=== PATIENT | female | born 1965 | race American Indian/Alaskan Native ===

== ENCOUNTER 2017-05-25 11:31 | Inpatient (IN) | payer OTHER ==
[2017-05-25 12:15] LABS: Basophils % (Auto) 0.8 % (0.0-1.8); Eosinophils % (Auto) 7.1 % (0.0-4.3); Hematocrit 37.7 % (30.3-42.9); Hemoglobin 12.7 gm/dl (10.1-14.3); Mean Corpuscular HGB Conc 34 % (30-34); Mean Corpuscular Hemoglobin 31 pg (28-32); Mean Corpuscular Volume 92 fl (79-97); Platelet Count 320 K/mm3 (140-440); White Blood Count 8.1 K/mm3 (4.5-11.0)
--- NOTE | 2017-05-25 12:22 | XRay Report ---
AP CHEST: HISTORY: Neurological deficit, stroke AP view of the chest demonstrates a normal mediastinal and cardiac contour with clear lungs and normal bony and soft tissue structures. IMPRESSION: Unremarkable AP chest.
[2017-05-25 12:27] LABS: INR 0.88 (0.87-1.13)
[2017-05-25 12:28] LABS: Partial Thromboplastin Time 26.8 Sec. (24.2-36.6)
--- NOTE | 2017-05-25 12:31 | Cat Scan Report ---
CT HEAD WITHOUT CONTRAST: HISTORY: Left sided weakness for 2 days. TECHNIQUE: Sequential 2.5mm CT images. COMPARISON: none. FINDINGS: Cerebral Parenchyma: Within normal limits. Cerebellum: Within normal limits. Brainstem: Within normal limits. Ventricles: Normal. Sella: Normal. Extra-axial spaces: Normal. Basal Cisterns: Normal. Intracranial Hemorrhage: None. Midline Shift: None. Calvarium: Normal. Sinuses: Normal. Mastoid Air Cells: Normal. Visualized Orbits: Normal. IMPRESSION: Cranial CT scan within normal limits.
[2017-05-25 12:55] LABS: Anion Gap 23 mmol/L; BUN/Creatinine Ratio 17; Blood Urea Nitrogen 17 mg/dL (7-17); Calcium 9.7 mg/dL (8.4-10.2); Carbon Dioxide 21 mmol/L (22-30); Chloride 101.3 mmol/L (98-107); Glucose 111 mg/dL (65-100); Potassium 4.1 mmol/L (3.6-5.0); Sodium 141 mmol/L (137-145)
[2017-05-25] MEDS ORDERED: ASPIRIN PO ONE (13:17)
--- NOTE | 2017-05-25 13:23 | Emergency Department Report ---
HPI - General Chief Complaint: Weakness Time Seen by Provider: 05/25/17 13:08 - HPI HPI: Room 6 The patient is a 52-year-old female presenting with a chief complaint of left sided weakness. Patient states she days ago she noticed weakness in her left hand she began dropping things from it. The patient states same day she began nose and left lower extremity weakness requiring her to track her left leg when walking. The patient states in the ED she developed left facial numbness. Patient does complain of a slight headache and back pain. Patient states she developed right-sided chest pain this morning that is sharp and aching in nature. The patient gives her pain score 10/10 Location: [See above] Duration: Constant 2 days Quality: Weakness Severity: 10/10 Modifying factors: [see above] Context: [see above] Mode of transportation: [not driving] ED Past Medical Hx - Past Medical History Previous Medical History?: Yes Hx Hypertension: Yes Hx CVA: Yes (tia, CVA 2006 no residual deficits) Hx Psychiatric Treatment: Yes (panic disorder) Additional medical history: tia 2011, uterus leiomyoma, arthritis of knee, hydrosalpinx, low back pain, h/o HPV infection movement disorder - Surgical History Additional Surgical History: tubal ligation - Family History Family history: no significant - Social History Smoking Status: Former Smoker (none for over 20 years) Substance Use Type: None (denies illicit drug use) - Medications Home Medications: Home Medications Medication Instructions Recorded Confirmed Last Taken Type Hydrochlorothiazide [Hctz] 25 mg PO QDAY 04/24/13 04/24/13 04/24/13 History Losartan [Cozaar] 50 mg PO QDAY 04/24/13 04/24/13 04/24/13 History Norethindrone Acetate [Aygestin] 5 mg PO DAILY 04/24/13 04/24/13 04/24/13 History amLODIPine [Norvasc] 5 mg PO DAILY 04/24/13 04/24/13 04/24/13 History ED Review of Systems ROS: Stated complaint: L SIDE WEAK, C/P Other details as noted in HPI ENT: denies: ear pain Cardiovascular: chest pain Gastrointestinal: denies: abdominal pain Genitourinary: denies: dysuria Musculoskeletal: back pain Neurological: headache, weakness Physical Exam - Physical Exam Vital Signs: Vital Signs 05/25/17 05/25/1705/25/17 11:41 12:12 12:15 Temperature 98.6 F 99.0 F Pulse Rate 116 H 102 H Respiratory 18 30 H 30 H Rate Blood Pressure 136/86 Blood Pressure 131/82 [Right] O2 Sat by Pulse 99 100 100 Oximetry 05/25/17 05/25/17 05/25/17 12:28 12:31 12:45 Temperature Pulse Rate 94 H 93 H 93 H Respiratory 45 H 33 H 31 H Rate Blood Pressure 131/82 131/82 Blood Pressure [Right] O2 Sat by Pulse 100 100 98 Oximetry 05/25/17 13:00 Temperature 99.0 F Pulse Rate 83 Respiratory 20 Rate Blood Pressure Blood Pressure 135/84 [Right] O2 Sat by Pulse 100 Oximetry Physical Exam: GENERAL: The patient is well-developed well-nourished female lying on stretcher not appearing to be in acute distress. [] HEENT: Normocephalic. Atraumatic. Extraocular motions are intact. Patient has moist mucous membranes. NECK: Supple. Trachea midline CHEST/LUNGS: Clear to auscultation. There is no respiratory distress noted. HEART/CARDIOVASCULAR: Regular. There is no tachycardia. There is no gallop rub or murmur. ABDOMEN: Abdomen is soft, nontender. Patient has normal bowel sounds. There is no abdominal distention. SKIN: There is no rash. There is no diaphoresis. NEURO: The patient is awake, alert, and oriented. The patient is cooperative. Cranial nerves II through XII grossly intact. Patient is only able to raise her left upper extremity approximately 6 inches from off the stretcher. The patient has normal speech. Patient is unable to flex left lower extremity at the hip and knee MUSCULOSKELETAL: There is no evidence of acute injury. ED Course Vital Signs 05/25/17 05/25/17 05/25/17 11:41 12:12 12:15 Temperature 98.6 F 99.0 F Pulse Rate 116 H 102 H Respiratory 18 30 H 30 H Rate Blood Pressure 136/86 Blood Pressure 131/82 [Right] O2 Sat by Pulse 99 100 100 Oximetry 05/25/17 05/25/17 05/25/17 12:28 12:31 12:45 Temperature Pulse Rate 94 H 93 H 93 H Respiratory 45 H 33 H 31 H Rate Blood Pressure 131/82 131/82 Blood Pressure [Right] O2 Sat by Pulse 100 100 98 Oximetry 05/25/17 13:00 Temperature 99.0 F Pulse Rate 83 Respiratory 20 Rate Blood Pressure Blood Pressure 135/84 [Right] O2 Sat by Pulse 100 Oximetry - Consultations Consultation #1: 05/25/17 14:04 [facility] called 05/25/17 14:[address] Jain-he states there are no beds available it is okay to admit the patient at [facility] ED Medical Decision Making - Lab Data Result diagrams: 05/25/17 11:52 05/25/17 11:52 Laboratory Tests 05/25/17 05/25/17 05/25/17 11:40 11:52 11:52 WBC 8.1 RBC 4.10 Hgb 12.7 Hct 37.7 MCV 92 MCH 31 MCHC 34 RDW 14.0 Plt Count 320 Lymph % (Auto) 36.9 H [place] % (Auto) 7.4 H Eos % (Auto) 7.1 H Baso % (Auto) 0.8 Lymph # 3.0 [place] # 0.6 Eos # 0.6 H Baso # 0.1 Seg Neutrophils % 47.8 Seg Neutrophils # 3.9 PT 12.4 INR 0.88 APTT 26.8 Thrombin Time Sodium Potassium Chloride Carbon Dioxide Anion Gap BUN Creatinine Estimated GFR BUN/Creatinine Ratio Glucose POC Glucose 106 H Calcium Troponin T 05/25/17 05/25/17 11:52 11:52 WBC RBC Hgb Hct MCV MCH MCHC RDW Plt Count Lymph % (Auto) [place] % (Auto) Eos % (Auto) Baso % (Auto) Lymph # [place] # Eos # Baso # Seg Neutrophils % Seg Neutrophils # PT INR APTT Thrombin Time 15.4 Sodium 141 Potassium 4.1 Chloride 101.3 Carbon Dioxide 21 L Anion Gap 23 BUN 17 Creatinine 1.0 Estimated GFR > 60 BUN/Creatinine Ratio 17 Glucose 111 H POC Glucose Calcium 9.7 Troponin T < 0.010 - EKG Data -: EKG Interpreted by Me EKG shows normal: sinus rhythm Rate: normal - EKG Data When compared to previous EKG there are: previous EKG unavailable Interpretation: other (no ischemic changes seen) - Radiology Data Radiology results: report reviewed (CT head), image reviewed (CT head, chest x- ray) interpreted by me: Chest x-ray-no focal infiltrates, no pneumothorax CT HEAD WITHOUT CONTRAST: HISTORY: Left sided weakness for 2 days. TECHNIQUE: Sequential 2.5mm CT images. COMPARISON: none. FINDINGS: Cerebral Parenchyma: Within normal limits. Cerebellum: Within normal limits. Brainstem: Within normal limits. Ventricles: Normal. Sella: Normal. Extra-axial spaces: Normal. Basal Cisterns: Normal. Intracranial Hemorrhage: None. Midline Shift: None. Calvarium: Normal. Sinuses: Normal. Mastoid Air Cells: Normal. Visualized Orbits: Normal. IMPRESSION: Cranial CT scan within normal limits. Transcribed By: TTR Dictated By: JUAN JOSÉ NERI JR, MD Electronically Authenticated By: JUAN JOSÉ NERI JR, MD Signed Date/Time: 05/25/171226 DD/ 26 TD/TT: 05/25/171226 - Differential Diagnosis CVA, complex migraine, ACS, pericarditis, GERD Critical care attestation.: If time is entered above; I have spent that time in minutes in the direct care of this critically ill patient, excluding procedure time. ED Disposition Clinical Impression: CVA (cerebral vascular accident) Disposition: -09 OP ADMIT IP TO THIS HOSP Is pt being admited?: Yes Does the pt Need Aspirin: Yes Condition: Fair Referrals: PRIMARY CARE, [Primary Care Provider] - 3-5 Days Time of Disposition: 14:09 (hospitalist paged Dr Escamilla)
[2017-05-25] MEDS ORDERED: BENADRYL ONE (17:02)
[2017-05-25] MEDS ORDERED: DILAUDID ONE (17:03)
[2017-05-25] MEDS: DILAUDID IV PRN ×2 (17:07→21:56)
[2017-05-25] MEDS: BENADRYL IV PRN (17:08)
--- NOTE | 2017-05-25 23:54 | History and Physical Report ---
History of Present Illness Date of examination: 05/25/17 Date of admission: 05/25/17 15:39 Chief complaint: CC L sided weakness. 3 days History of present illness: [place]: The patient is a 52-year-old female presenting with a chief complaint of left sided weakness. Patient states she noticed weakness in her left hand 3 days ago and she began dropping things from it. The patient states same day had left lower extremity weakness requiring her to lift her left leg when walking. The patient states in the ED she developed left facial numbness. Patient does complain of a slight headache and back pain. Patient states she developed right -sided chest pain this morning that is sharp and aching in nature. The patient gives her pain score 10/10.Patient apparently went to [place] ER 2 days ago and was evaluated and discharged. Past Medical History Previous Medical History?: Yes Hx Hypertension: Yes Hx CVA: Yes (tia, CVA 2006 no residual deficits) Hx Psychiatric Treatment: Yes (panic disorder) Additional medical history: tia 2011, uterus leiomyoma, arthritis of knee, hydrosalpinx, low back pain, h/o HPV infection movement disorder - Surgical History Additional Surgical History: tubal ligation - Family History Family history: no significant - Social History Smoking Status: Former Smoker (none for over 20 years) Substance Use Type: None (denies illicit drug use) - Medications Home Medications: Home Medications Medication Instructions Recorded Confirmed Last Taken Type Hydrochlorothiazide [Hctz] 25 mg PO QDAY 04/24/13 04/24/13 04/24/13 History Losartan [Cozaar] 50 mg PO QDAY 04/24/13 04/24/13 04/24/13 History Norethindrone Acetate [Aygestin] 5 mg PO DAILY 04/24/13 04/24/13 04/24/13 History amLODIPine [Norvasc] 5 mg PO DAILY 04/24/13 04/24/13 04/24/13 History Review of Systems ROS: Stated complaint: L SIDE WEAK, C/P Other details as noted in HPI ENT: denies: ear pain Cardiovascular: chest pain Gastrointestinal: denies: abdominal pain Genitourinary: denies: dysuria Musculoskeletal: back pain Neurological: headache, weakness Medications and Allergies Allergies Allergy/AdvReac Type Severity Reaction Status Date / Time acetaminophen [From Vicodin] Allergy Itching Verified 04/24/13 14:51 cyclobenzaprine Allergy Itching Verified 05/25/17 11:41 [From Flexeril] gabapentin Allergy Itching Verified 05/25/17 11:41 hydrocodone bitartrate Allergy Itching Verified 04/24/13 14:51 [From Vicodin] Opioids - Morphine Analogues Allergy Itching Verified 05/25/17 11:41 oxycodone Allergy Itching Verified 05/25/17 11:41 tramadol Allergy Itching Verified 05/25/17 11:41 perocet Allergy Itching Uncoded 05/25/17 11:41 Home Medications Medication Instructions Recorded Confirmed Last Taken Type Hydrochlorothiazide [Hctz] 25 mg PO QDAY 04/24/13 05/25/17 05/25/17 08:00 History Active Meds: Active Medications Diphenhydramine HCl (Benadryl) 25 mg IV Q6H PRN PRN Reason: Itching Last Admin: 05/25/17 17:08 Dose: 25 mg Hydromorphone HCl (Dilaudid) 0.5 mg IV Q3H PRN PRN Reason: Pain , Severe (7-10) Last Admin: 05/25/17 21:56 Dose: 0.5 mg Exam - Constitutional Vitals: Temp Pulse Resp BP Pulse Ox 98.9 F 106 H 18 136/78 99 05/25/17 21:26 05/25/17 21:26 05/25/17 21:26 05/25/17 21:26 05/25/17 21:26 General appearance: Present: no acute distress, well-nourished - EENT Eyes: Present: PERRL ENT: hearing intact, clear oral mucosa - Neck Neck: Present: supple, normal ROM - Respiratory Respiratory effort: normal Respiratory: bilateral: CTA - Cardiovascular Heart rate: 80 Rhythm: regular Heart Sounds: Present: S1 & S2. Absent: rub, click - Extremities Extremities: pulses symmetrical, No edema Peripheral Pulses: within normal limits - Abdominal General gastrointestinal: Present: soft, non-tender, non-distended, normal bowel sounds Female genitourinary: Present: normal - Integumentary Integumentary: Present: clear, warm, dry - Musculoskeletal Musculoskeletal: gait normal, strength equal bilaterally - Psychiatric Psychiatric: appropriate mood/affect, intact judgment & insight - Neurologic Neurologic: CNII-XII intact, focal deficits (LUE/LLE 2/5 weakness.Keeps it stiff.Unable to lift and leave the upper extremitiy.Keeps it stiff at shoulder.) Results - Labs CBC & Chem 7: 05/27/17 05:08 05/27/17 05:08 Labs: Laboratory Last Values WBC 8.1 K/mm3 (4.5-11.0) 05/25/17 11:52 RBC 4.10 M/mm3 (3.65-5.03) 05/25/17 11:52 Hgb 12.7 gm/dl (10.1-14.3) 05/25/17 11:52 Hct 37.7 % (30.3-42.9) 05/25/17 11:52 MCV 92 fl (79-97) 05/25/17 11:52 MCH 31 pg (28-32) 05/25/17 11:52 MCHC 34 % (30-34) 05/25/17 11:52 RDW 14.0 % (13.2-15.2) 05/25/17 11:52 Plt Count 320 K/mm3 (140-440) 05/25/17 11:52 Lymph % (Auto) 36.9 % (13.4-35.0) H 05/25/17 11:52 [place] % (Auto) 7.4 % (0.0-7.3) H 05/25/17 11:52 Eos % (Auto) 7.1 % (0.0-4.3) H 05/25/17 11:52 Baso % (Auto) 0.8 % (0.0-1.8) 05/25/17 11:52 Lymph # 3.0 K/mm3 (1.2-5.4) 05/25/17 11:52 [place] # 0.6 K/mm3 (0.0-0.8) 05/25/17 11:52 Eos # 0.6 K/mm3 (0.0-0.4) H 05/25/17 11:52 Baso # 0.1 K/mm3 (0.0-0.1) 05/25/17 11:52 Seg Neutrophils % 47.8 % (40.0-70.0) 05/25/17 11:52 Seg Neutrophils # 3.9 K/mm3 (1.8-7.7) 05/25/17 11:52 PT 12.4 Sec. (12.2-14.9) 05/25/17 11:52 INR 0.88 (0.87-1.13) 05/25/17 11:52 APTT 26.8 Sec. (24.2-36.6) 05/25/17 11:52 Thrombin Time 15.4 Sec. (15.1-19.6) 05/25/17 11:52 Sodium 141 mmol/L (137-145) 05/25/17 11:52 Potassium 4.1 mmol/L (3.6-5.0) 05/25/17 11:52 Chloride 101.3 mmol/L (98-107) 05/25/17 11:52 Carbon Dioxide 21 mmol/L (22-30) L 05/25/17 11:52 Anion Gap 23 mmol/L 05/25/17 11:52 BUN 17 mg/dL (7-17) 05/25/17 11:52 Creatinine 1.0 mg/dL (0.7-1.2) 05/25/17 11:52 Estimated GFR > 60 ml/min 05/25/17 11:52 BUN/Creatinine Ratio 17 % 05/25/17 11:52 Glucose 111 mg/dL (65-100) H 05/25/17 11:52 POC Glucose 106 (70-105) H 05/25/17 11:40 Calcium 9.7 mg/dL (8.4-10.2) 05/25/17 11:52 Troponin T < 0.010 ng/mL (0.00-0.029) 05/25/17 11:52 Short CBC 05/27/17 Range/Units 05:08 WBC 11.1 H (4.5-11.0) K/mm3 Hgb 12.1 (10.1-14.3) gm/dl Hct 35.0 (30.3-42.9) % Plt Count 327 (140-440) K/mm3 BMP 05/27/17 05:08 Sodium 142 Potassium 3.6 Chloride 101.3 Carbon Dioxide 23 BUN 18 H Creatinine 0.9 Glucose 132 H Calcium 9.4 Liver Function 05/27/17 Range/Units 05:08 Total Bilirubin 0.30 (0.1-1.2) mg/dL AST 17 (5-40) units/L ALT 19 (7-56) units/L Alkaline Phosphatase 87 (35-129) units/L Albumin 4.4 (3.9-5) g/dL - Imaging and Cardiology EKG: report reviewed (NSR) Chest x-ray: report reviewed (NAF) CT Scan - head: report reviewed (NAF) MRI - head: report reviewed (Negative) Assessment and Plan Advance Directives: Yes (Full code) VTE prophylaxis?: Chemical Plan of care discussed with patient/family: Yes - Patient Problems (1) Acute cerebrovascular accident Current Visit: Yes Status: Acute Plan to address problem: MRI negative Possible functional etiology Conversion reaction?? Will get MH involved (2) HTN (hypertension) Current Visit: Yes Status: Chronic Qualifiers: Hypertension type: essential hypertension Qualified Code(s): I10 - Essential (primary) hypertension Plan to address problem: Cont antihypertensives (3) HLD (hyperlipidemia) Current Visit: Yes Status: Chronic Qualifiers: Hyperlipidemia type: mixed hyperlipidemia Qualified Code(s): E78.2 - Mixed hyperlipidemia Plan to address problem: ont Statins (4) DVT prophylaxis Current Visit: Yes Status: Acute Plan to address problem: on Lovenox
[2017-05-26] MEDS: BENADRYL IV PRN ×5 (01:32→22:16)
[2017-05-26] MEDS ORDERED: DULCOLAX PR PRN (02:15)
[2017-05-26] MEDS ORDERED: TYLENOL PO PRN (02:15)
[2017-05-26] MEDS ORDERED: ZOFRAN IV PRN (02:15)
[2017-05-26] MEDS ORDERED: MILK OF MAGNESIA PO PRN (02:15)
[2017-05-26] MEDS ORDERED: PERCOCET 5/325 PO PRN (02:15)
[2017-05-26] MEDS ORDERED: SODIUM CHLORIDE FLUSH SYRINGE 10 ML IV PRN (02:21)
[2017-05-26] MEDS: DILAUDID IV PRN ×4 (04:16→22:15)
--- NOTE | 2017-05-26 11:09 | Magnetic Resonance Report ---
MRA HEAD WITHOUT CONTRAST HISTORY: Stroke. [id number] imaging with MIP reformations of the deering of M[place] is submitted. The arteries appear widely patent and free of hemodynamically significant stenosis, aneurysm or dissection. IMPRESSION: Unremarkable MRA head.
--- NOTE | 2017-05-26 11:09 | Magnetic Resonance Report ---
MRI OF THE BRAIN WITHOUT CONTRAST: HISTORY: Stroke PROCEDURE: Multiplanar, multisequence MR imaging of the brain without IV contrast was performed. FINDINGS: The brain parenchyma signal intensity and its cutler white interface are within normal limits on all sequences. No evidence for acute ischemia, hemorrhage or mass. No chronic infarct or extra-axial fluid collection. The midline structures are central. The basal cisterns are patent. Normal ventricular size. The orbital cavities and sella turcica demonstrate no abnormality. The visualized paranasal sinuses and mastoid air cells are well aerated. IMPRESSION: Unremarkable non-enhanced MRI of the brain.
--- NOTE | 2017-05-26 12:51 | Consultation ---
History of Present Illness Consult date: 05/26/17 History of present illness: PERSONALLY DID REVIEW THE MRA AND MRI AND THESE ARE BOTH NORMAL / UNREMARKABLE ? TIA? Medications and Allergies Allergies Allergy/AdvReac Type Severity Reaction Status Date / Time acetaminophen [From Vicodin] Allergy Itching Verified 04/24/13 14:51 cyclobenzaprine Allergy Itching Verified 05/25/17 11:41 [From Flexeril] gabapentin Allergy Itching Verified 05/25/17 11:41 hydrocodone bitartrate Allergy Itching Verified 04/24/13 14:51 [From Vicodin] Opioids - Morphine Analogues Allergy Itching Verified 05/25/17 11:41 oxycodone Allergy Itching Verified 05/25/17 11:41 tramadol Allergy Itching Verified 05/25/17 11:41 perocet Allergy Itching Uncoded 05/25/17 11:41 Home Medications Medication Instructions Recorded Confirmed Last Taken Type Hydrochlorothiazide [Hctz] 25 mg PO QDAY 04/24/13 05/25/17 05/25/17 08:00 History Active Meds: Active Medications Acetaminophen (Tylenol) 650 mg PO Q4H PRN PRN Reason: Pain MILD(1-3)/Fever >100.5/WEEMS Bisacodyl (Dulcolax) 10 mg DC QDAY PRN PRN Reason: Constipation unrelieved by MOM Diphenhydramine HCl (Benadryl) 25 mg IV Q6H PRN PRN Reason: Itching Last Admin: 05/26/17 08:56 Dose: 25 mg Hydromorphone HCl (Dilaudid) 0.5 mg IV Q3H PRN PRN Reason: Pain , Severe (7-10) Last Admin: 05/26/17 08:57 Dose: 0.5 mg Magnesium Hydroxide (Milk Of Magnesia) 30 ml PO Q4H PRN PRN Reason: Constipation Ondansetron HCl (Zofran) 4 mg IV Q8H PRN PRN Reason: N/V unrelieved by Reglan Oxycodone/Acetaminophen (Percocet 5/325) 1 tab PO Q6H PRN PRN Reason: Pain, Moderate (4-6) Sodium Chloride (Sodium Chloride Flush Syringe 10 Ml) 10 ml IV PRN PRN PRN Reason: LINE FLUSH Physical Examination - Vital Signs Vital Signs: Vital Signs Temp Pulse Resp BP Pulse Ox 98.6 F 116 H 18 136/86 99 05/25/17 11:41 05/25/17 11:41 05/25/17 11:41 05/25/17 11:41 05/25/17 11:41 Results - Laboratory Findings CBC and BMP: 05/25/17 11:52 05/25/17 11:52 Abnormal Lab Findings: Abnormal Labs 05/25/17 05/25/17 05/25/17 11:40 11:52 11:52 Lymph % (Auto) 36.9 H [place] % (Auto) 7.4 H Eos % (Auto) 7.1 H Eos # 0.6 H Carbon Dioxide 21 L Glucose 111 H POC Glucose 106 H
[2017-05-26] MEDS ORDERED: MOTRIN PO PRN (17:11)
--- NOTE | 2017-05-26 18:59 | Consultation ---
HISTORY OF PRESENT ILLNESS: This is a 52-year-old black female that presents to [facility] with a history of left-sided weakness. Review of the ER note indicates that she has had weakness of the left side for several days. She presented to the hospital, has been on antihypertensive treatment. She states to me that she had a stroke in 2005. She was hospitalized at this hospital per her recollection and she was left with chronic musculoskeletal pain as a result of this. She sees the doctor as a cause of her treatment. She does not exactly remember what diagnosis was assessed for her condition whether this is fibromyalgia, rheumatoid arthritis or myofascial pain or even central pain syndrome due to the old stroke. What is curious is that since she has been admitted, she has had very little change in her neurological symptomatology. I have gone over her MRA and MRI, they both are unremarkable, yet on examination she has a symmetrical face. She has a profound rigidity of the left arm and left leg almost as if there is some type of fixed contracture and they are in extension rather than flexion. This is quite an uncharacteristic finding and she obviously being aware of her hemiparesis, does not have indifference, does not have the right parietal lobe syndrome, does not have any other symptoms very strongly suggestive of a central process such as a positive MRI and any parietal lobe findings. This whole presentation seems quite atypical in my view, especially given the intense degree of rigidity in the left arm and left leg, which is quite uncharacteristic for an ischemic stroke, yet I think because of the hemiparetic nature of it, it is unlikely to be spinal cord in origin as it is a hemiparetic-type phenomena and she does not have any other symptoms suggestive of a central cord syndrome. I plan to review MRA and MRI with the radiologist and make further comments at that point. JOB# [id number] CAMI/BRYON
--- NOTE | 2017-05-26 21:42 | Progress Note ---
Assessment and Plan - Patient Problems (1) Acute cerebrovascular accident Current Visit: Yes Status: Acute Plan to address problem: MRI negative Possible functional etiology Conversion reaction?? Will get MH involved (2) HLD (hyperlipidemia) Current Visit: Yes Status: Chronic Qualifiers: Hyperlipidemia type: mixed hyperlipidemia Qualified Code(s): E78.2 - Mixed hyperlipidemia Plan to address problem: ont Statins (3) HTN (hypertension) Current Visit: Yes Status: Chronic Qualifiers: Hypertension type: essential hypertension Qualified Code(s): I10 - Essential (primary) hypertension Plan to address problem: Cont antihypertensives (4) DVT prophylaxis Current Visit: Yes Status: Acute Plan to address problem: on Lovenox Subjective Date of service: 05/26/17 Principal diagnosis: L side weakness Interval history: Some improvement Keeps l side stiff. No Flaccidity Objective - Constitutional Vitals: Vital Signs - 12hr 05/26/17 05/26/17 05/26/17 10:00 13:15 20:44 Temperature 97.5 F L 98.8 F Pulse Rate 88 95 H 102 H Respiratory 20 20 20 Rate Blood Pressure 146/84 152/80 O2 Sat by Pulse 96 94 Oximetry General appearance: Present: no acute distress, well-nourished - EENT Eyes: PERRL, EOM intact ENT: hearing intact, clear oral mucosa Ears: bilateral: normal - Neck Neck: supple, normal ROM - Respiratory Respiratory effort: normal Respiratory: bilateral: CTA - Breasts Breasts: normal - Cardiovascular Heart rate: 70 Rhythm: regular Heart Sounds: Present: S1 & S2. Absent: gallop, rub Extremities: no ischemia, pulses intact, No edema, normal color, Full ROM - Gastrointestinal General gastrointestinal: Present: soft, non-tender, non-distended, normal bowel sounds - Genitourinary Female genitourinary: normal - Integumentary Integumentary: clear, warm, dry - Musculoskeletal Musculoskeletal: 1, strength equal bilaterally - Neurologic Neurologic: CNII-XII intact, focal deficits (LUE unable to lift and drop the extremity.Keeps it stiff at L shoulder) - Psychiatric Psychiatric: memory intact, appropriate mood/affect, intact judgment & insight - Labs CBC & Chem 7: 05/27/17 05:08 05/27/17 05:08
[2017-05-27] MEDS: BENADRYL IV PRN ×2 (03:07→13:18)
[2017-05-27] MEDS: DILAUDID IV PRN ×2 (03:07→13:17)
[2017-05-27 06:07] LABS: Basophils % (Auto) 0.6 % (0.0-1.8); Eosinophils % (Auto) 6.8 % (0.0-4.3); Hemoglobin 12.1 gm/dl (10.1-14.3); Mean Corpuscular HGB Conc 35 % (30-34); Mean Corpuscular Hemoglobin 31 pg (28-32); Mean Corpuscular Volume 90 fl (79-97); Platelet Count 327 K/mm3 (140-440); Red Blood Count 3.87 M/mm3 (3.65-5.03); Red Cell Distribution Width 14.2 % (13.2-15.2); White Blood Count 11.1 K/mm3 (4.5-11.0)
[2017-05-27 06:28] LABS: Alanine Aminotransferase 19 units/L (7-56); Albumin 4.4 g/dL (3.9-5); Albumin/Globulin Ratio 1.6 %; Alkaline Phosphatase 87 units/L (35-129); Anion Gap 21 mmol/L; BUN/Creatinine Ratio 20; Blood Urea Nitrogen 18 mg/dL (7-17); Calcium 9.4 mg/dL (8.4-10.2); Carbon Dioxide 23 mmol/L (22-30); Chloride 101.3 mmol/L (98-107); Cholesterol 144 mg/dL (50-199); Glucose 132 mg/dL (65-100); HDL Cholesterol 40 mg/dL (40-59); LDL Cholesterol,Direct 69 mg/dL (50-130); Potassium 3.6 mmol/L (3.6-5.0); Sodium 142 mmol/L (137-145); Total Protein 7.2 g/dL (6.3-8.2); Triglycerides 179 mg/dL (2-149)
[2017-05-27 07:30] VITALS: BP 151/84
[2017-05-27] MEDS ORDERED: HCTZ PO SCH (10:00)
[2017-05-27] MEDS ORDERED: COZAAR PO SCH (10:00)
--- NOTE | 2017-05-27 12:39 | Discharge Summary ---
Providers - Providers Date of Admission: 05/25/17 15:39 Date of discharge: 05/27/17 Attending physician: GIRMA ORR 05/26/17 02:15 Consult to Physician [CONS] Routine Consulting Provider: FRANCIS GARNER Reason For Exam: CVA Place consult to:: neuro Notified:: frantz service Phone number called:: [phone] Was contact made?: Yes If yes, spoke with:: [email or web address] Time called:: 08:50 05/26/17 02:21 Occupational Therapy Evaluate and Treat [CONS] Routine Comment: Reason For Exam: Neuro deficits Physical Therapy Evaluation and Treat [CONS] Routine Comment: Reason For Exam: Neuro deficits 05/27/17 07:09 Consult to Mental Health [CONS] Routine Reason For Exam: CVA versus conversion disorer Place consult to:: n Notified:: Phone number called:: [phone] Was contact made?: Yes If yes, spoke with:: ramírez Time called:: 08:56 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 CVA suspected on admission and stroke workup initiated. Physical exam was not concordant with her stated symptoms and imaging tests including CT head, brain MRI, MRA excluded any acute or prior stroke. Concern for psychiatric/conversion disorder. Discussed with [facility] and patient is discharged with PCP and psychiatry follow-up. Discharge diagnoses: CVA excluded Psychiatric/? Conversion disorder HTN HPL Obesity Disposition: DC- TO HOME OR SELFCARE Time spent for discharge: 35 min Core Measure Documentation - Palliative Care Palliative Care/ Comfort Measures: Not Applicable - Core Measures Any of the following diagnoses?: none Exam - Physical Exam Narrative exam: Seen and examined: - Constitutional Vitals: Temp Pulse Resp BP Pulse Ox 98.7 F 86 16 151/84 98 05/27/17 07:25 05/27/17 07:25 05/27/17 07:25 05/27/17 07:25 05/27/17 07:25 General appearance: Present: no acute distress, obese - EENT Eyes: Present: PERRL, EOM intact - Neck Neck: Present: supple, normal ROM. Absent: masses or JVD - Respiratory Respiratory effort: normal Respiratory: bilateral: CTA, negative: rhonchi, wheezing - Cardiovascular Rhythm: regular Heart Sounds: Present: S1 & S2. Absent: systolic murmur - Extremities Extremities: no ischemia - Abdominal General gastrointestinal: Present: soft, non-tender, non-distended, normal bowel sounds - Neurologic Neurologic: other (refusing to move left arm and leg) Plan Activity: advance as tolerated, fall precautions Diet: low cholesterol, low salt Additional Instructions: f/u with your PCP and psychiatrist at [facility] (discussed with Dr. Jain and patient will be called with appointment dates) Follow up with: PRIMARY CARE, [Primary Care Provider] - 3-5 Days Prescriptions: Pravastatin [Pravachol] 40 mg PO QHS #30 tablet Losartan [Cozaar] 50 mg PO QDAY #30 tablet
[2017-05-27] MEDS ORDERED: PRAVACHOL PO SCH (22:00)
== END 2017-05-27 16:33 | disposition home or self-care (01) | DRG 880 ==
LOC: ED 11:31 → 4A 15:39 → 3A 05-26 20:35
PROVIDERS: ADMIT Internal Medicine; ATTEND Internal Medicine
DX: F44.4 Conversion disorder with motor symptom or deficit (principal); I10 Essential (primary) hypertension; Z98.51 Tubal ligation status; Z87.891 Personal history of nicotine dependence; E78.5 Hyperlipidemia, unspecified; Z88.8 Allergy status to other drugs, medicaments and biological substances
CPT/HCPCS: 36415; 70450; 70544; 70551; 71010; 80048; 80053; 80061; 82962; 84484; 85025; 85610; 85670; 85730; 93005; 93010; 93306; 94760; 96374; A9270-GY; J1170; J1200

== ENCOUNTER 2017-09-01 08:22 | Emergency (ER) | payer OTHER ==
[2017-09-01 09:30] LABS: Basophils # (Auto) 0.1 K/mm3 (0.0-0.1); Basophils % (Auto) 0.7 % (0.0-1.8); Eosinophils # (Auto) 0.4 K/mm3 (0.0-0.4); Eosinophils % (Auto) 5.1 % (0.0-4.3); Hemoglobin 11.6 gm/dl (10.1-14.3); Lymphocytes # (Auto) 2.8 K/mm3 (1.2-5.4); Lymphocytes % (Auto) 40.1 % (13.4-35.0); Mean Corpuscular HGB Conc 34 % (30-34); Mean Corpuscular Hemoglobin 31 pg (28-32); Mean Corpuscular Volume 89 fl (79-97); Monocytes # (Auto) 0.6 K/mm3 (0.0-0.8); Monocytes % (Auto) 8.2 % (0.0-7.3); Platelet Count 318 K/mm3 (140-440); Red Cell Distribution Width 13.1 % (13.2-15.2)
[2017-09-01 09:43] LABS: BUN/Creatinine Ratio 11; Blood Urea Nitrogen 11 mg/dL (7-17); Calcium 8.8 mg/dL (8.4-10.2); Hemolysis Index 49
--- NOTE | 2017-09-01 09:44 | Emergency Department Report ---
ED General Adult HPI - General Chief complaint: Dyspnea/Respdistress Stated complaint: BRET Time Seen by Provider: 09/01/17 09:43 Source: patient Mode of arrival: Stretcher Limitations: No Limitations - History of Present Illness Initial comments: Patient gives a somewhat unreliable history of a CT angiogram performed last Saturday being abnormal and "probable pulmonary embolism". She also mentions something that sounds like a hilar abnormality. This is a patient I previously seen before. She has been admitted at this facility for a TIA workup. She had a negative stroke workup and normal echocardiogram. Over the last week she has been to [facility] and their acute care clinic for uncontrolled hypertension and worked up of a tachycardia which involves the CT angiogram. I spoke into the [facility] physician who stated that her CT angiogram was essentially normal that is no PE and normal mediastinum slight atelectasis but otherwise no pulmonary normality. However, in 2015 she had an abnormal stress test (Lexiscan)). Patient states that she has had shortness of breath intermittently during the week. Today she had some fullness in her anterior chest which was associated with shortness of breath. She called the [facility] clinic and she was directed to the nearest hospital. At the point of my encounter the patient denies chest discomfort and shortness of breath. -: Gradual, week(s) Location: chest Radiation: non-radiation Severity scale (0 -10): 0 Quality: other (a "fullness") Consistency: intermittent Improves with: none Worsens with: none Associated Symptoms: denies other symptoms (except dyspnea), shortness of breath - Related Data Home Medications Medication Instructions Recorded Confirmed Last Taken AtorvaSTATin [Lipitor] 40 mg PO QHS 09/01/17 09/01/17 Unknown DULoxetine [Cymbalta] 90 mg PO QDAY 09/01/17 09/01/17 Unknown Ferrous Sulfate [Iron] 325 mg PO QDAY 09/01/17 09/01/17 Unknown Hydroxyzine HCl 50 mg PO TID 09/01/17 09/01/17 Unknown Pantoprazole [Protonix] 40 mg PO BID 09/01/17 09/01/17 Unknown Potassium Chloride [K-Dur] 40 meq PO QDAY 09/01/17 09/01/17 Unknown Valsartan [Diovan] 320 mg PO QDAY 09/01/17 09/01/17 Unknown hydrALAZINE [Apresoline] 50 mg PO TID 09/01/17 09/01/17 Unknown tiZANidine [Zanaflex] 4 mg PO TID 09/01/17 09/01/17 Unknown Allergies Allergy/AdvReac Type Severity Reaction Status Date / Time acetaminophen [From Vicodin] Allergy Itching Verified 04/24/13 14:51 cyclobenzaprine Allergy Itching Verified 05/25/17 11:41 [From Flexeril] gabapentin Allergy Itching Verified 05/25/17 11:41 hydrocodone bitartrate Allergy Itching Verified 04/24/13 14:51 [From Vicodin] Opioids - Morphine Analogues Allergy Itching Verified 05/25/17 11:41 oxycodone Allergy Itching Verified 05/25/17 11:41 tramadol Allergy Itching Verified 05/25/17 11:41 perocet Allergy Itching Uncoded 05/25/17 11:41 ED Review of Systems ROS: Stated complaint: BRET Other details as noted in HPI Constitutional: denies: chills, fever Eyes: denies: eye pain, eye discharge, vision change ENT: denies: ear pain, throat pain Respiratory: shortness of breath. denies: cough, wheezing Cardiovascular: as per HPI, chest pain. denies: palpitations Endocrine: no symptoms reported Gastrointestinal: denies: abdominal pain, nausea, diarrhea Genitourinary: denies: urgency, dysuria, discharge Musculoskeletal: other (bilateral leg pain). denies: back pain, joint swelling , arthralgia Skin: denies: rash, lesions Neurological: denies: headache, weakness, paresthesias Psychiatric: denies: anxiety, depression Hematological/Lymphatic: denies: easy bleeding, easy bruising ED Past Medical Hx - Past Medical History Previous Medical History?: Yes Hx Hypertension: Yes Hx CVA: Yes (tia, CVA 2006 no residual deficits) Hx Heart Attack/AMI: Yes Hx Congestive Heart Failure: Yes Hx Diabetes: No Hx Psychiatric Treatment: Yes (panic disorder) Hx Asthma: No Hx COPD: No Hx Dementia: Yes Additional medical history: tia 2011, uterus leiomyoma, arthritis of knee, hydrosalpinx, low back pain, h/o HPV infection movement disorder - Surgical History Past Surgical History?: Yes Additional Surgical History: tubal ligation - Social History Smoking Status: Never Smoker Substance Use Type: None - Medications Home Medications: Home Medications Medication Instructions Recorded Confirmed Last Taken Type AtorvaSTATin [Lipitor] 40 mg PO QHS 09/01/17 09/01/17 Unknown History DULoxetine [Cymbalta] 90 mg PO QDAY 09/01/17 09/01/17 Unknown History Ferrous Sulfate [Iron] 325 mg PO QDAY 09/01/17 09/01/17 Unknown History Hydroxyzine HCl 50 mg PO TID 09/01/17 09/01/17 Unknown History Pantoprazole [Protonix] 40 mg PO BID 09/01/17 09/01/17 Unknown History Potassium Chloride [K-Dur] 40 meq PO QDAY 09/01/17 09/01/17 Unknown History Valsartan [Diovan] 320 mg PO QDAY 09/01/17 09/01/17 Unknown History hydrALAZINE [Apresoline] 50 mg PO TID 09/01/17 09/01/17 Unknown History tiZANidine [Zanaflex] 4 mg PO TID 09/01/17 09/01/17 Unknown History ED Physical Exam - General Limitations: No Limitations General appearance: alert, in no apparent distress - Head Head exam: Present: atraumatic, normocephalic - Eye Eye exam: Present: normal appearance - ENT ENT exam: Present: mucous membranes moist - Neck Neck exam: Present: normal inspection. Absent: tenderness, meningismus - Respiratory Respiratory exam: Present: normal lung sounds bilaterally. Absent: respiratory distress - Cardiovascular Cardiovascular Exam: Present: normal rhythm, bradycardia. Absent: systolic murmur, diastolic murmur, rubs, gallop - GI/Abdominal GI/Abdominal exam: Present: soft, normal bowel sounds. Absent: distended, tenderness, guarding, rebound, rigid - Extremities Exam Extremities exam: Present: normal capillary refill, calf tenderness (states someone on the right), other (bilateral pretibial edema). Absent: pedal edema, joint swelling - Back Exam Back exam: Present: normal inspection - Neurological Exam Neurological exam: Present: alert, oriented X3, CN II-XII intact. Absent: motor sensory deficit - Psychiatric Psychiatric exam: Present: normal affect, normal mood - Skin Skin exam: Present: warm, dry, intact, normal color. Absent: rash ED Course Vital Signs 09/01/17 09/01/17 09/01/17 08:29 08:30 08:36 Temperature 98.2 F Pulse Rate 65 57 L 52 L Respiratory 17 22 24 Rate Blood Pressure 117/70 Blood Pressure 117/70 [Right] O2 Sat by Pulse 96 97 Oximetry 09/01/17 09/01/17 09/01/17 08:46 09:00 09:30 Temperature Pulse Rate 48 L 46 L 55 L Respiratory 14 28 H Rate Blood Pressure 132/82 128/70 128/70 Blood Pressure [Right] O2 Sat by Pulse 99 100 Oximetry 09/01/17 09/01/17 09:45 09:59 Temperature Pulse Rate 51 L Respiratory 11 L 16 Rate Blood Pressure 126/78 Blood Pressure [Right] O2 Sat by Pulse 100 97 Oximetry - Reevaluation(s) Reevaluation #1: Patient has multiple risk factors for coronary artery disease. She has previously abnormal stress test. I spoke to the [facility] physician about disposition and the need for further workup. The patient will be admitted to [facility]. She is stable for transfer. 09/01/17 10:21 Reevaluation #2: I will order some additional labs to include a proBNP pattern functions and coagulation profile. 09/01/17 10:22 ED Medical Decision Making - Lab Data Result diagrams: 09/01/17 09:15 09/01/17 09:15 Laboratory Results - last 24 hr 09/01/17 09/01/17 09:15 09:15 WBC 7.0 RBC 3.80 Hgb 11.6 Hct 34.0 MCV 89 MCH 31 MCHC 34 RDW 13.1 L Plt Count 318 Lymph % (Auto) 40.1 H [place] % (Auto) 8.2 H Eos % (Auto) 5.1 H Baso % (Auto) 0.7 Lymph # 2.8 [place] # 0.6 Eos # 0.4 Baso # 0.1 Seg Neutrophils % 45.9 Seg Neutrophils # 3.2 Sodium 142 Potassium 3.5 L Chloride 104.2 Carbon Dioxide 26 Anion Gap 15 BUN 11 Creatinine 1.0 Estimated GFR > 60 BUN/Creatinine Ratio 11 Glucose 134 H Calcium 8.8 Troponin T < 0.010 - EKG Data -: EKG Interpreted by Nc EKG shows normal: sinus rhythm, axis, intervals, QRS complexes, ST-T waves Rate: bradycardia - EKG Data Interpretation: no acute changes - Radiology Data Radiology results: report reviewed (mild pulmonary venous congestion) Critical care attestation.: If time is entered above; I have spent that time in minutes in the direct care of this critically ill patient, excluding procedure time. ED Disposition Clinical Impression: Leg edema, Bradycardia Chest pain Qualifiers: Chest pain type: unspecified Qualified Code(s): R07.9 - Chest pain, unspecified HTN (hypertension) Qualifiers: Hypertension type: essential hypertension Qualified Code(s): I10 - Essential ( primary) hypertension Leg pain Qualifiers: Laterality: bilateral Qualified Code(s): M79.604 - Pain in right leg; M79.605 - Pain in left leg Dyspnea Qualifiers: Dyspnea type: shortness of breath Qualified Code(s): R06.02 - Shortness of breath; R06.00 - Dyspnea, unspecified; R06.01 - Orthopnea Disposition: DC/TX-70 ANOTHER TYPE HLTHCARE Is pt being admited?: No Does the pt Need Aspirin: No Condition: Stable Instructions: Chest Pain (ED), Hypertension (ED) Additional Instructions: Transferred to [facility] for further workup Referrals: PRIMARY CAREMD [Primary Care Provider] - 3-5 Days Time of Disposition: 10:26
--- NOTE | 2017-09-01 09:47 | XRay Report ---
ROUTINE CHEST, TWO VIEWS: HISTORY: Shortness of breath. Mild pulmonary venous congestion has developed since 05/25/17. Heart size is within normal limits. The lungs are clear. No evidence for CHF, pneumonia or pneumothorax. The bony structures are unremarkable. IMPRESSION: Mild pulmonary venous congestion which appears to be new since 05/25/17.
[2017-09-01] MEDS ORDERED: ASPIRIN PO ONE (10:28)
[2017-09-01 11:22] LABS: INR 0.86 (0.87-1.13); Partial Thromboplastin Time 27.5 Sec. (24.2-36.6)
[2017-09-01 11:43] VITALS: BP 134/77
[2017-09-01 11:50] LABS: Creatine Kinase MB 1.2 ng/mL (0.0-4.0)
[2017-09-01 11:51] LABS: Albumin 3.5 g/dL (3.9-5)
[2017-09-01 11:52] LABS: Bilirubin,Direct < 0.2 mg/dL (0-0.2)
[2017-09-01 12:03] LABS: Alanine Aminotransferase 51 units/L (7-56)
== END 2017-09-01 12:12 | disposition other institution (70) ==
LOC: ED 08:22
DX: R07.89 Other chest pain (principal); I11.0 Hypertensive heart disease with heart failure; I50.9 Heart failure, unspecified; R00.1 Bradycardia, unspecified; I25.2 Old myocardial infarction; Z86.73 Personal history of transient ischemic attack (TIA), and cerebral infarction without residual deficits; Z88.6 Allergy status to analgesic agent; Z88.8 Allergy status to other drugs, medicaments and biological substances
CPT/HCPCS: 36415; 71046; 80048; 80074; 82550; 82553; 83880; 84484; 85025; 85379; 85610; 85730; 93005; 93010; 99285

== ENCOUNTER 2018-01-12 13:56 | Emergency (ER) | payer OTHER ==
[2018-01-12] MEDS ORDERED: APRESOLINE IV ONE ×2 (16:10→16:40)
[2018-01-12] MEDS ORDERED: ATIVAN IV ONE (16:39)
[2018-01-12 16:41] LABS: Basophils % (Auto) 0.3 % (0.0-1.8); Eosinophils # (Auto) 0.2 K/mm3 (0.0-0.4); Eosinophils % (Auto) 2.4 % (0.0-4.3); Hematocrit 41.4 % (30.3-42.9); Hemoglobin 14.2 gm/dl (10.1-14.3); Lymphocytes # (Auto) 2.3 K/mm3 (1.2-5.4); Lymphocytes % (Auto) 31.6 % (13.4-35.0); Mean Corpuscular HGB Conc 34 % (30-34); Mean Corpuscular Hemoglobin 32 pg (28-32); Mean Corpuscular Volume 92 fl (79-97); Monocytes # (Auto) 0.5 K/mm3 (0.0-0.8); Monocytes % (Auto) 7.1 % (0.0-7.3); Platelet Count 339 K/mm3 (140-440); Red Cell Distribution Width 14.4 % (13.2-15.2)
--- NOTE | 2018-01-12 16:53 | XRay Report ---
FINAL REPORT EXAM: XR CHEST 1V AP HISTORY: chest pain TECHNIQUE: AP portable view of the chest PRIORS: None. FINDINGS: Lines, tubes, and devices: N/A Lungs and pleura: Trachea is normal in position. There is a vague density in the left lateral costophrenic angle. Lungs are otherwise clear of infiltrate, pleural effusion, vascular congestion, or pneumothorax. Cardiomediastinal silhouette: Cardiac and mediastinal silhouettes are unremarkable. Other: Bony structures are intact. IMPRESSION: Vague density in the left lateral costophrenic angle which may represent a confluence of shadows. When the patient is more stable, dedicated PA and lateral views of the chest are recommended.
[2018-01-12 16:58] LABS: BUN/Creatinine Ratio 10; Blood Urea Nitrogen 8 mg/dL (7-17); Calcium 9.8 mg/dL (8.4-10.2); Hemolysis Index 9
[2018-01-12] MEDS ORDERED: NORMODYNE IV ONE (18:02)
--- NOTE | 2018-01-12 18:11 | Emergency Department Report ---
HPI - General Chief Complaint: High BP Time Seen by Provider: 01/12/18 16:20 - HPI HPI: The patient is a 52-year-old female with a history of hypertension, who presents for evaluation of elevated blood pressure and intermittent shakes. The patient states that for the past 2 weeks she has experienced on and off mild in severity, self-resolving intermittent shaking of the upper extremities, improved at rest and exacerbated with movement. The patient denies fever, head injury, headache, neck pain, neck stiffness, chest pain, dyspnea, abdominal pain , vision or hearing changes, smell or taste changes, paresthesias, facial drooping, slurred speech, seizure-like activity, urine or bowel incontinence or retention, or other focal neurological deficit. ED Past Medical Hx - Past Medical History Hx Hypertension: Yes Hx CVA: Yes (tia, CVA 2006 no residual deficits) Hx Heart Attack/AMI: Yes Hx Congestive Heart Failure: Yes Hx Diabetes: No Hx Arthritis: Yes Hx Psychiatric Treatment: Yes (panic disorder) Hx Asthma: No Hx COPD: No Hx Dementia: Yes Additional medical history: tia 2011, uterus leiomyoma, arthritis of knee, hydrosalpinx, low back pain, h/o HPV infection movement disorder - Surgical History Additional Surgical History: tubal ligation - Social History Smoking Status: Never Smoker Substance Use Type: None - Medications Home Medications: Home Medications Medication Instructions Recorded Confirmed Last Taken Type AtorvaSTATin [Lipitor] 40 mg PO QHS 09/01/17 09/01/17 Unknown History DULoxetine [Cymbalta] 90 mg PO QDAY 09/01/17 09/01/17 Unknown History Ferrous Sulfate [Iron] 325 mg PO QDAY 09/01/17 09/01/17 Unknown History Hydroxyzine HCl 50 mg PO TID 09/01/17 09/01/17 Unknown History Pantoprazole [Protonix] 40 mg PO BID 09/01/17 09/01/17 Unknown History Potassium Chloride [K-Dur] 40 meq PO QDAY 09/01/17 09/01/17 Unknown History Valsartan [Diovan] 320 mg PO QDAY 09/01/17 09/01/17 Unknown History hydrALAZINE [Apresoline] 50 mg PO TID 09/01/17 09/01/17 Unknown History tiZANidine [Zanaflex] 4 mg PO TID 09/01/17 09/01/17 Unknown History ED Review of Systems ROS: Stated complaint: HBP/SHAKING Other details as noted in HPI Constitutional: denies: fever ENT: denies: throat or neck pain Respiratory: denies: cough, shortness of breath Cardiovascular: denies: chest pain Endocrine: denies unexplained weight loss or gain Gastrointestinal: denies: abdominal pain, nausea Genitourinary: denies: dysuria Musculoskeletal: denies: leg swelling Skin: denies: rash Neurological: reports tremor denies: headache Hematological/Lymphatic: denies: easy bleeding or easy bruising Psych: denies sadness or hopelessness Physical Exam - Physical Exam Vital Signs: Vital Signs 01/12/18 01/12/18 01/12/18 14:01 16:31 16:40 Temperature 98.7 F Pulse Rate 95 H 99 H Respiratory 20 13 16 Rate Blood Pressure 215/116 187/110 O2 Sat by Pulse 96 95 98 Oximetry 01/12/18 17:39 Temperature Pulse Rate 101 H Respiratory Rate Blood Pressure 169/147 O2 Sat by Pulse Oximetry Physical Exam: General: well-nourished, well-developed, no acute distress Head: Normocephalic, atraumatic Eyes: normal sclera ENT: Mucous membranes are pale and dry Neck: No neck stiffness, no cervical adenopathy Respiratory: Breath sounds equal bilaterally, no wheezing, rales, or rhonchi Cardio: S1 and S2 present, no murmurs, rubs, gallops, capillary refill is delayed Abdomen: Normoactive bowel sounds, soft abdomen, no rigidity, no guarding or rebound tenderness Chest WALL/Back: No tenderness to palpation of the chest wall, no CVA tenderness with percussion Musc: No pitting edema Skin: No rash Neuro: alert oriented x4, mild intention tremor present in the upper extremities , normal cognition, speech normal, PERRL, EOM intact, no facial drooping, no uvula or tongue deviation on protrusion, no deficit with rotation of neck or shoulder shrug, no obvious gross motor deficit in the upper or lower extremities with flexion or extension at the shoulder, elbow, wrist, hip, knee, or ankle bilaterally, no obvious gross sensation deficit to crude touch or 2 pt discrimination, 2+ symmetric reflexes on DTR testing, no coordination deficit with [id number] or [id number] testing, Babinski downgoing, romberg negative, patient able to to ambulate without abnormal gait Psych: Normal affect ED Course Vital Signs 01/12/18 01/12/18 01/12/18 14:01 16:31 16:40 Temperature 98.7 F Pulse Rate 95 H 99 H Respiratory 20 13 16 Rate Blood Pressure 215/116 187/110 O2 Sat by Pulse 96 95 98 Oximetry 01/12/18 17:39 Temperature Pulse Rate 101 H Respiratory Rate Blood Pressure 169/147 O2 Sat by Pulse Oximetry ED Medical Decision Making - Lab Data Result diagrams: 01/12/18 16:20 01/12/18 16:20 - Medical Decision Making The patient was seen and examined by myself. The patient is placed on a threat monitoring analyst and continuous pulse ox. On initial evaluation, the patient was found to be in no distress. Evaluation orders were placed. The patient given multiple doses of IV antihypertensives for her elevated blood pressure. The patient is given IV Ativan for her tremor. Lab results are reassuring including normal calcium level, magnesium, potassium, sodium, and thyroid function levels. On reexamination the patient's blood pressure was found to decrease outside of range concerning for hypertensive emergency. Additionally the patient states that she feels back to her normal baseline and is completely asymptomatic. She states that she would like to go home. The patient now has a blood pressure and heart rate within normal limits, and she is stable for discharge with outpatient follow-up. The patient is given follow-up and return instructions. The patient expressed understanding and agreed with the plan. The patient is discharged in stable condition. Critical care attestation.: If time is entered above; I have spent that time in minutes in the direct care of this critically ill patient, excluding procedure time. ED Disposition Clinical Impression: Hypertensive urgency, Tremor of both hands, Dehydration Disposition: -01 TO HOME OR SELFCARE Is pt being admited?: No Does the pt Need Aspirin: No Condition: Stable Instructions: Hypertension (ED) Referrals: PRIMARY CARE [Primary Care Provider] - 3-5 Days [facility] [Outside] - 3-5 Days Time of Disposition: 18:02
[2018-01-12 18:53] VITALS: BP 97/52
== END 2018-01-12 19:12 | disposition home or self-care (01) ==
LOC: ED 13:56
DX: I16.0 Hypertensive urgency (principal); R25.1 Tremor, unspecified; E86.0 Dehydration; M17.9 Osteoarthritis of knee, unspecified; I11.0 Hypertensive heart disease with heart failure; I25.2 Old myocardial infarction; I50.9 Heart failure, unspecified; F03.90 Unspecified dementia, unspecified severity, without behavioral disturbance, psychotic disturbance, mood disturbance, and anxiety; F41.0 Panic disorder [episodic paroxysmal anxiety]; Z86.73 Personal history of transient ischemic attack (TIA), and cerebral infarction without residual deficits; Z88.8 Allergy status to other drugs, medicaments and biological substances; Z98.51 Tubal ligation status; Z79.899 Other long term (current) drug therapy
CPT/HCPCS: 36415; 71045; 80048; 83735; 83880; 84439; 84443; 85025; 93005; 93010; 96365; 96375; 99284; J0360; J2060

== ENCOUNTER 2018-02-02 09:01 | Emergency (ER) | payer OTHER ==
[2018-02-02] MEDS ORDERED: ATIVAN IV ONE (10:39)
--- NOTE | 2018-02-02 10:46 | Emergency Department Report ---
HPI - General Chief Complaint: Neuro Symptoms/Deficit Time Seen by Provider: 02/02/18 10:30 - HPI HPI: Room 10 The patient is a 52-year-old female presented with a chief complaint of "shaking." The patient's daughter states this morning she noticed the patient continues to shaking and having seizure-like activity. During the interview the patient began shaking her upper body as well as bilateral upper extremities. Immediately during a sternal rub. When asked why she is shaking like that the patient states she does not know. When asked if anything is bothering her the patient replies nothing is bothering her. Location: [See above] Duration: [See above] Quality: Shaking Severity: [See above] Modifying factors: [see above] Context: [see above] Mode of transportation: [not driving] ED Past Medical Hx - Past Medical History Hx Hypertension: Yes Hx CVA: Yes (tia, CVA 2006 no residual deficits) Hx Heart Attack/AMI: Yes Hx Congestive Heart Failure: Yes Hx Arthritis: Yes Hx Psychiatric Treatment: Yes (panic disorder) Hx Dementia: Yes Additional medical history: tia 2011, uterus leiomyoma, arthritis of knee, hydrosalpinx, low back pain, h/o HPV infection movement disorder - Surgical History Additional Surgical History: tubal ligation - Family History Family history: no significant - Social History Smoking Status: Former Smoker (none 30 years) Substance Use Type: None (denies illicit drug use) - Medications Home Medications: Home Medications Medication Instructions Recorded Confirmed Last Taken Type AtorvaSTATin [Lipitor] 40 mg PO QHS 09/01/17 09/01/17 Unknown History DULoxetine [Cymbalta] 90 mg PO QDAY 09/01/17 09/01/17 Unknown History Ferrous Sulfate [Iron] 325 mg PO QDAY 09/01/17 09/01/17 Unknown History Hydroxyzine HCl 50 mg PO TID 09/01/17 09/01/17 Unknown History Pantoprazole [Protonix] 40 mg PO BID 09/01/17 09/01/17 Unknown History Potassium Chloride [K-Dur] 40 meq PO QDAY 09/01/17 09/01/17 Unknown History Valsartan [Diovan] 320 mg PO QDAY 09/01/17 09/01/17 Unknown History hydrALAZINE [Apresoline] 50 mg PO TID 09/01/17 09/01/17 Unknown History tiZANidine [Zanaflex] 4 mg PO TID 09/01/17 09/01/17 Unknown History hydrOXYzine PAMOATE [Vistaril] 50 mg PO Q6HR PRN #10 capsule 02/02/18 Unknown Rx ED Review of Systems ROS: Stated complaint: POSS SEIZURE Other details as noted in HPI Constitutional: no symptoms reported Eyes: denies: eye pain ENT: denies: throat pain Respiratory: no symptoms reported Cardiovascular: denies: chest pain Endocrine: no symptoms reported Gastrointestinal: denies: abdominal pain Genitourinary: denies: dysuria Musculoskeletal: denies: back pain Neurological: denies: headache Physical Exam - Physical Exam Vital Signs: Vital Signs 02/02/18 09:30 Temperature 98.3 F Pulse Rate 97 H Respiratory 22 Rate Blood Pressure 168/109 Blood Pressure 168/109 [Right] O2 Sat by Pulse 93 Oximetry Physical Exam: GENERAL: The patient is well-developed well-nourished female sitting on stretcher not appearing to be in acute distress. [] HEENT: Normocephalic. Atraumatic. Extraocular motions are intact. Patient has moist mucous membranes. NECK: Supple. No meningitic signs are noted. Trachea midline CHEST/LUNGS: Clear to auscultation. There is no respiratory distress noted. HEART/CARDIOVASCULAR: Regular. There is no tachycardia. There is no gallop rub or murmur. ABDOMEN: Abdomen is soft, nontender. Patient has normal bowel sounds. There is no abdominal distention. SKIN: There is no rash. There is no edema. There is no diaphoresis. NEURO: The patient is awake, alert, and oriented. The patient is cooperative. The patient has no focal neurologic deficits. The patient has normal speech. Cranial nerves II through XII grossly intact MUSCULOSKELETAL: There is no evidence of acute injury. ED Course Vital Signs 02/02/18 09:30 Temperature 98.3 F Pulse Rate 97 H Respiratory 22 Rate Blood Pressure 168/109 Blood Pressure 168/109 [Right] O2 Sat by Pulse 93 Oximetry - Consultations Consultation #1: 02/02/18 13:38 Case discussed with MH administrative aide ED Medical Decision Making - Lab Data Result diagrams: 02/02/18 12:35 02/02/18 11:08 Laboratory Tests 02/02/18 02/02/18 02/02/18 11:08 11:08 11:08 WBC RBC Hgb Hct MCV MCH MCHC RDW Plt Count Sodium 142 Potassium 4.0 Chloride 102.2 Carbon Dioxide 23 Anion Gap 21 BUN 14 Creatinine 0.7 Estimated GFR > 60 BUN/Creatinine Ratio 20 Glucose 109 H Calcium 9.1 Magnesium 2.50 H TSH 1.610 Free T4 0.93 02/02/18 12:35 WBC 6.5 RBC 4.15 Hgb 13.1 Hct 38.3 MCV 92 MCH 32 MCHC 34 RDW 14.1 Plt Count 292 Sodium Potassium Chloride Carbon Dioxide Anion Gap BUN Creatinine Estimated GFR BUN/Creatinine Ratio Glucose Calcium Magnesium TSH Free T4 - Radiology Data Radiology results: report reviewed (CT head), image reviewed (CT head) [facility] [address] [place] [address] Cat Scan Report Signed Patient: BOBBY ROGERS MR#: [id number] : 1964 Acct:[id number] Age/Sex: 52 / F ADM Date: 02/02/18 Loc: ED Attending Dr: Ordering Physician: DAY JIMENEZ MD Date of Service: 02/02/18 Procedure(s): CT head/brain wo con Accession Number(s): [id number] cc: DAY JIMENEZ MD FINAL REPORT EXAM: CT HEAD/BRAIN WO CON HISTORY: "shaking" TECHNIQUE: CT of the head was performed without intravenous contrast. PRIORS: None. FINDINGS: The ventricles are normal in shape and position. The ventricles are nondilated. No intracranial hemorrhage, mass, mass effect, midline shift or evidence of acute ischemic infarct. The basilar cisterns are patent. The paranasal sinuses are clear. The extracranial soft tissues demonstrate no abnormality. The calvarium is intact. The orbits are intact. The mastoid air cells are clear. IMPRESSION: No acute intracranial abnormality. Transcribed By: MG Dictated By: CACHORRO AVALOS MD Electronically Authenticated By: CACHORRO AVALOS MD Signed Date/Time: 02/02/181236 DD/ 36 TD/TT: 02/02/181236 - Differential Diagnosis pseudoseizures, anxiety, ICH, electrolyte abnormality Critical care attestation.: If time is entered above; I have spent that time in minutes in the direct care of this critically ill patient, excluding procedure time. ED Disposition Clinical Impression: Shaking Disposition: DC-01 TO HOME OR SELFCARE Is pt being admited?: No Does the pt Need Aspirin: No Condition: Stable Additional Instructions: Return to the emergency department immediately should you develop worsening symptoms, fever, inability to tolerate food or liquid or any other concerns. Prescriptions: hydrOXYzine PAMOATE [Vistaril] 50 mg PO Q6HR PRN #10 capsule PRN Reason: Anxiety Referrals: [facility] [Outside] - 3-5 Days PRIMARY CARE, [Primary Care Provider] - 3-5 Days Time of Disposition: 13:38
[2018-02-02 12:35] LABS: Free T4 (Free Thyroxine) 0.93 ng/dL (0.76-1.46)
--- NOTE | 2018-02-02 12:45 | Cat Scan Report ---
FINAL REPORT EXAM: CT HEAD/BRAIN WO CON HISTORY: "shaking" TECHNIQUE: CT of the head was performed without intravenous contrast. PRIORS: None. FINDINGS: The ventricles are normal in shape and position. The ventricles are nondilated. No intracranial hemorrhage, mass, mass effect, midline shift or evidence of acute ischemic infarct. The basilar cisterns are patent. The paranasal sinuses are clear. The extracranial soft tissues demonstrate no abnormality. The calvarium is intact. The orbits are intact. The mastoid air cells are clear. IMPRESSION: No acute intracranial abnormality.
[2018-02-02 13:15] LABS: Hematocrit 38.3 % (30.3-42.9); Hemoglobin 13.1 gm/dl (10.1-14.3); Mean Corpuscular HGB Conc 34 % (30-34); Mean Corpuscular Hemoglobin 32 pg (28-32); Mean Corpuscular Volume 92 fl (79-97); Platelet Count 292 K/mm3 (140-440); Red Blood Count 4.15 M/mm3 (3.65-5.03); Red Cell Distribution Width 14.1 % (13.2-15.2)
[2018-02-02 13:26] LABS: BUN/Creatinine Ratio 20; Blood Urea Nitrogen 14 mg/dL (7-17); Calcium 9.1 mg/dL (8.4-10.2); Hemolysis Index 23
[2018-02-02 14:23] VITALS: BP 141/98
== END 2018-02-02 14:24 | disposition home or self-care (01) ==
LOC: ED 09:01
DX: R25.1 Tremor, unspecified (principal); I11.0 Hypertensive heart disease with heart failure; I50.9 Heart failure, unspecified; M13.869 Other specified arthritis, unspecified knee; F41.0 Panic disorder [episodic paroxysmal anxiety]; F03.90 Unspecified dementia, unspecified severity, without behavioral disturbance, psychotic disturbance, mood disturbance, and anxiety; I25.2 Old myocardial infarction; Z87.891 Personal history of nicotine dependence; Z86.73 Personal history of transient ischemic attack (TIA), and cerebral infarction without residual deficits; Z98.51 Tubal ligation status; Z88.6 Allergy status to analgesic agent; Z88.8 Allergy status to other drugs, medicaments and biological substances
CPT/HCPCS: 36415; 70450; 80048; 83735; 84439; 84443; 85027; 96374; 99285; J2060

== ENCOUNTER 2018-04-14 22:01 | Inpatient (IN) | payer OTHER ==
--- NOTE | 2018-04-14 22:18 | Emergency Department Report ---
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 Patient presented to the ER via EMS for evaluation of sudden onset of aphasia and altered mental status. Symptoms started at 21:00 symmetrically one hour prior to emergency room arrival. Patient is unable to provide more history secondary to his speech problem. In the emergency room code stroke initiated. The patient moved to CT scan. -: Sudden Time: 21:00 Location: speech, dysarthria Presenting Symptoms: Present: Unable to Speak Clearly, Altered Mental Status History of same: Yes Place: home Context: sudden onset - Related Data Home Medications: Home Medications Medication Instructions Recorded Confirmed Last Taken AtorvaSTATin [Lipitor] 40 mg PO QHS 09/01/17 09/01/17 Unknown DULoxetine [Cymbalta] 90 mg PO QDAY 09/01/17 09/01/17 Unknown Ferrous Sulfate [Iron] 325 mg PO QDAY 09/01/17 09/01/17 Unknown Pantoprazole [Protonix] 40 mg PO BID 09/01/17 09/01/17 Unknown Potassium Chloride [K-Dur] 40 meq PO QDAY 09/01/17 09/01/17 Unknown Valsartan [Diovan] 320 mg PO QDAY 09/01/17 09/01/17 Unknown hydrALAZINE [Apresoline] 50 mg PO TID 09/01/17 09/01/17 Unknown hydrOXYzine HCl [Hydroxyzine HCl] 50 mg PO TID 09/01/17 09/01/17 Unknown tiZANidine [Zanaflex] 4 mg PO TID 09/01/17 09/01/17 Unknown Previous Rx's Medication Instructions Recorded Last Taken Type hydrOXYzine PAMOATE [Vistaril] 50 mg PO Q6HR PRN #10 capsule 02/02/18 Unknown Rx Allergies/Adverse Reactions: Allergies Allergy/AdvReac Type Severity Reaction Status Date / Time acetaminophen [From Vicodin] Allergy Itching Verified 04/24/13 14:51 cyclobenzaprine Allergy Itching Verified 05/25/17 11:41 [From Flexeril] gabapentin Allergy Itching Verified 05/25/17 11:41 hydrocodone bitartrate Allergy Itching Verified 04/24/13 14:51 [From Vicodin] Opioids - Morphine Analogues Allergy Itching Verified 05/25/17 11:41 oxycodone Allergy Itching Verified 05/25/17 11:41 tramadol Allergy Itching Verified 05/25/17 11:41 perocet Allergy Itching Uncoded 05/25/17 11:41 ED Review of Systems ROS: Stated complaint: POSSIBLE STROKE Other details as noted in HPI Comment: Unobtainable due to pts medical conditions ED Past Medical Hx - Past Medical History Previous Medical History?: Yes Hx Hypertension: Yes Hx CVA: Yes (tia, CVA 2006 no residual deficits) Hx Heart Attack/AMI: Yes Hx Congestive Heart Failure: Yes Hx Arthritis: Yes Hx Psychiatric Treatment: Yes (panic disorder) Hx Dementia: Yes Additional medical history: tia 2011, uterus leiomyoma, arthritis of knee, hydrosalpinx, low back pain, h/o HPV infection movement disorder - Surgical History Past Surgical History?: Yes Additional Surgical History: tubal ligation - Social History Smoking Status: Unknown if ever smoked - Medications Home Medications: Home Medications Medication Instructions Recorded Confirmed Last Taken Type AtorvaSTATin [Lipitor] 40 mg PO QHS 09/01/17 09/01/17 Unknown History DULoxetine [Cymbalta] 90 mg PO QDAY 09/01/17 09/01/17 Unknown History Ferrous Sulfate [Iron] 325 mg PO QDAY 09/01/17 09/01/17 Unknown History Pantoprazole [Protonix] 40 mg PO BID 09/01/17 09/01/17 Unknown History Potassium Chloride [K-Dur] 40 meq PO QDAY 09/01/17 09/01/17 Unknown History Valsartan [Diovan] 320 mg PO QDAY 09/01/17 09/01/17 Unknown History hydrALAZINE [Apresoline] 50 mg PO TID 09/01/17 09/01/17 Unknown History hydrOXYzine HCl [Hydroxyzine HCl] 50 mg PO TID 09/01/17 09/01/17 Unknown History tiZANidine [Zanaflex] 4 mg PO TID 09/01/17 09/01/17 Unknown History hydrOXYzine PAMOATE [Vistaril] 50 mg PO Q6HR PRN #10 capsule 02/02/18 Unknown Rx ED Neuro Physical Exam - General Limitations: Altered Mental Status General appearance: alert, in no apparent distress Suspected Stroke: Yes - Head Head exam: Present: atraumatic, normocephalic, normal inspection - Eye Eye exam: Present: normal appearance, PERRL - ENT ENT exam: Present: normal exam, normal orophraynx, mucous membranes moist - Neck Neck exam: Present: normal inspection, full ROM. Absent: tenderness, meningismus, lymphadenopathy, thyromegaly - Respiratory Respiratory exam: Present: normal lung sounds bilaterally. Absent: respiratory distress, wheezes, rales, rhonchi, chest wall tenderness - Cardiovascular Cardiovascular Exam: Present: tachycardia - GI/Abdominal GI/Abdominal exam: Present: soft, normal bowel sounds. Absent: distended, tenderness, guarding, rebound, rigid, diminished bowel sounds, mass, bruit, pulsatile mass - Extremities Exam Extremities exam: Present: normal inspection, full ROM, normal capillary refill. Absent: pedal edema, calf tenderness - Back Exam Back exam: Present: normal inspection, full ROM. Absent: CVA tenderness (L), muscle spasm, paraspinal tenderness - Neurological Exam Neurological exam: Present: alert, altered - NIHSS Assessment Interval: Baseline 1a. Level of Consciousness: alert/keenly responsive 1b. LOC Questions: dysarthric/intubated 1c. LOC Commands: performs 1 task correctly 2. Best Gaze: normal 3. Visual: no visual loss 4. Facial Palsy: normal symmetrical movement 5b. Motor Arm Right: some gravity effort 5a. Motor Arm Left: some gravity effort 6a. Motor Leg Left: some gravity effort 6b. Motor Leg Right: some gravity effort 7. Limb Ataxia: absent 8. Sensory: no response/quadraplegic 9. Best Language: mute/global aphasia 10. Dysarthria: mute/anarrthric 11. Extinction/Inattention: no abnormality Total Score: 17 Stroke Severity: Moderate to Severe Stroke - Psychiatric Psychiatric exam: Present: anxious - Skin Skin exam: Present: warm, intact, normal color ED Course Vital Signs 04/14/18 04/14/18 04/14/18 22:07 22:08 22:24 Temperature 98.5 F Pulse Rate 130 H 122 H Respiratory 16 Rate Blood Pressure 166/101 165/101 Blood Pressure [Left] O2 Sat by Pulse 97 99 Oximetry 04/14/18 04/14/18 04/14/18 22:30 23:13 23:39 Temperature Pulse Rate 104 H 110 H Respiratory 18 25 H Rate Blood Pressure 165/101 187/114 Blood Pressure 137/102 [Left] O2 Sat by Pulse 98 100 98 Oximetry - Reevaluation(s) Reevaluation #1: 04/14/18 22:30 I discussed the patient is Dr. Reyes from neurology telemetry. Dr. Reyes is examining the patient now. Reevaluation #2: 04/14/18 22:51 Patient examined by our neurologist Dr. Reyes. He stated the patient is moderately TPA candidate. He think this is most likely as a seizure or secondary to hypertensive emergency. He recommended to start patient on antihypertensive medicine and to admit for further workup. Reevaluation #3: 04/14/18 23:48 I discussed the patient is Dr. Alma Saucedo from [facility] and she advised that the patient can be admitted to [facility]. - Lab Data Result diagrams: 04/14/18 Unknown 04/14/18 Unknown Lab Results 04/14/18 04/14/18 04/14/18 Range/Units 22:13 Unknown Unknown WBC 8.3 (4.5-11.0) K/mm3 RBC 4.29 (3.65-5.03) M/mm3 Hgb 13.6 (10.1-14.3) gm/dl Hct 39.6 (30.3-42.9) % MCV 92 (79-97) fl MCH 32 (28-32) pg MCHC 34 (30-34) % RDW 14.0 (13.2-15.2) % Plt Count 302 (140-440) K/mm3 Lymph % (Auto) 41.5 H (13.4-35.0) % Laurel % (Auto) 8.6 H (0.0-7.3) % Eos % (Auto) 6.0 H (0.0-4.3) % Baso % (Auto) 0.8 (0.0-1.8) % Lymph # 3.5 (1.2-5.4) K/mm3 Laurel # 0.7 (0.0-0.8) K/mm3 Eos # 0.5 H (0.0-0.4) K/mm3 Baso # 0.1 (0.0-0.1) K/mm3 Seg Neutrophils % 43.1 (40.0-70.0) % Seg Neutrophils # 3.6 (1.8-7.7) K/mm3 PT 13.1 (12.2-14.9) Sec. INR 0.94 (0.87-1.13) APTT 23.3 L (24.2-36.6) Sec. Thrombin Time 15.1 (15.1-19.6) Sec. Sodium (137-145) mmol/L Potassium (3.6-5.0) mmol/L Chloride (98-107) mmol/L Carbon Dioxide (22-30) mmol/L Anion Gap mmol/L BUN (7-17) mg/dL Creatinine (0.7-1.2) mg/dL Estimated GFR ml/min BUN/Creatinine Ratio % Glucose (65-100) mg/dL POC Glucose 117 H (70-105) Calcium (8.4-10.2) mg/dL Total Creatine Kinase (30-135) units/L CK-MB (CK-2) (0.0-4.0) ng/mL CK-MB (CK-2) Rel Index (0-4) Troponin T (0.00-0.029) ng/mL 04/14/18 Range/Units Unknown WBC (4.5-11.0) K/mm3 RBC (3.65-5.03) M/mm3 Hgb (10.1-14.3) gm/dl Hct (30.3-42.9) % MCV (79-97) fl MCH (28-32) pg MCHC (30-34) % RDW (13.2-15.2) % Plt Count (140-440) K/mm3 Lymph % (Auto) (13.4-35.0) % Laurel % (Auto) (0.0-7.3) % Eos % (Auto) (0.0-4.3) % Baso % (Auto) (0.0-1.8) % Lymph # (1.2-5.4) K/mm3 Laurel # (0.0-0.8) K/mm3 Eos # (0.0-0.4) K/mm3 Baso # (0.0-0.1) K/mm3 Seg Neutrophils % (40.0-70.0) % Seg Neutrophils # (1.8-7.7) K/mm3 PT (12.2-14.9) Sec. INR (0.87-1.13) APTT (24.2-36.6) Sec. Thrombin Time (15.1-19.6) Sec. Sodium 141 (137-145) mmol/L Potassium 3.4 L (3.6-5.0) mmol/L Chloride 100.5 (98-107) mmol/L Carbon Dioxide 26 (22-30) mmol/L Anion Gap 18 mmol/L BUN 13 (7-17) mg/dL Creatinine 0.8 (0.7-1.2) mg/dL Estimated GFR > 60 ml/min BUN/Creatinine Ratio 16 % Glucose 111 H (65-100) mg/dL POC Glucose (70-105) Calcium 9.7 (8.4-10.2) mg/dL Total Creatine Kinase 162 H (30-135) units/L CK-MB (CK-2) 1.6 (0.0-4.0) ng/mL CK-MB (CK-2) Rel Index 0.9 (0-4) Troponin T < 0.010 (0.00-0.029) ng/mL - EKG Data -: EKG Interpreted by Me Rate: tachycardia Interpretation: no acute changes - Radiology Data Radiology results: report reviewed Referring Physician: ALON HIGHTOWER Patient Name: BOBBY HALL Date of : 1965 Sex: Female Report Date: 2018-04-14 Report Status: [place] [address] Cat Scan Report Signed Patient: BOBBY HALL MR#: [id number] : 1965 Acct:[id number] Age/Sex: 53 / F ADM Date: 04/14/18 Loc: ED Attending Dr: Ordering Physician: ALON HIGHTOWER Date of Service: 04/14/18 Procedure(s): CT head/brain wo con Accession Number(s): [id number] cc: ALON HIGHTOWER FINAL REPORT PROCEDURE: CT HEAD/BRAIN WO CON TECHNIQUE: Computerized tomography of the head was performed without contrast material. HISTORY: Stroke symptoms COMPARISON: 02/02/2018 FINDINGS: Skull and scalp: Normal. Paranasal sinuses: Normal. Ventricles and subarachnoid spaces: Normal. Cerebrum: No evidence of hemorrhage, acute infarction or mass . Cerebellum and brainstem: No evidence of hemorrhage, acute infarction or mass. Vasculature: Atherosclerotic calcification is noted involving vertebral arteries.. Comments: None. 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 Patient presented to the ER via EMS for evaluation of sudden onset of aphasia and altered mental status. Symptoms started at 21:00 symmetrically one hour prior to emergency room arrival. Patient is unable to provide more history secondary to his speech problem. In the emergency room code stroke initiated. The patient moved to CT scan. Patient examined by our neurologist Dr. Reyes. He stated the patient is not a TPA candidate. He think this is most likely a seizure or secondary to hypertensive emergency. He recommended to start patient on antihypertensive medicine and to admit for further workup. I discussed the patient is Dr. Sweetie Holguin, she agreed to admit the patient to medical service for further workup. Critical Care Time: Yes Critical care time in (mins) excluding proc time.: 30 Critical care attestation.: If time is entered above; I have spent that time in minutes in the direct care of this critically ill patient, excluding procedure time. ED Disposition Clinical Impression: Acute cerebrovascular accident, Altered mental status Disposition: - OP ADMIT IP TO THIS HOSP Is pt being admited?: Yes Condition: Stable Referrals: PRIMARY CARE, [Primary Care Provider] - 3-5 Days
--- NOTE | 2018-04-14 22:30 | Cat Scan Report ---
FINAL REPORT PROCEDURE: CT HEAD/BRAIN WO CON TECHNIQUE: Computerized tomography of the head was performed without contrast material. HISTORY: Stroke symptoms COMPARISON: 02/02/2018 FINDINGS: Skull and scalp: Normal. Paranasal sinuses: Normal. Ventricles and subarachnoid spaces: Normal. Cerebrum: No evidence of hemorrhage, acute infarction or mass . Cerebellum and brainstem: No evidence of hemorrhage, acute infarction or mass. Vasculature: Atherosclerotic calcification is noted involving vertebral arteries.. Comments: None. IMPRESSION: No acute intracranial abnormality
[2018-04-14 22:43] LABS: Basophils # (Auto) 0.1 K/mm3 (0.0-0.1); Basophils % (Auto) 0.8 % (0.0-1.8); Eosinophils # (Auto) 0.5 K/mm3 (0.0-0.4); Hematocrit 39.6 % (30.3-42.9); Hemoglobin 13.6 gm/dl (10.1-14.3); Lymphocytes # (Auto) 3.5 K/mm3 (1.2-5.4); Lymphocytes % (Auto) 41.5 % (13.4-35.0); Mean Corpuscular HGB Conc 34 % (30-34); Mean Corpuscular Hemoglobin 32 pg (28-32); Mean Corpuscular Volume 92 fl (79-97); Monocytes # (Auto) 0.7 K/mm3 (0.0-0.8); Monocytes % (Auto) 8.6 % (0.0-7.3); Platelet Count 302 K/mm3 (140-440); Red Blood Count 4.29 M/mm3 (3.65-5.03)
[2018-04-14] MEDS ORDERED: NORMODYNE IV ONE (22:52)
[2018-04-14 23:07] LABS: Partial Thromboplastin Time 23.3 Sec. (24.2-36.6); Thrombin Time 15.1 Sec. (15.1-19.6)
[2018-04-14 23:10] LABS: Creatine Kinase MB 1.6 ng/mL (0.0-4.0)
[2018-04-14 23:12] LABS: INR 0.94 (0.87-1.13)
[2018-04-14 23:14] LABS: BUN/Creatinine Ratio 16; Blood Urea Nitrogen 13 mg/dL (7-17); Calcium 9.7 mg/dL (8.4-10.2); Hemolysis Index 19
--- NOTE | 2018-04-14 23:59 | History and Physical Report ---
History of Present Illness Date of examination: 04/14/18 History of present illness: 53-year-old woman history of hypertension, coronary artery disease, dementia, CVA, CHF, panic disorder, 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 The client technical support associate at bedside state that her body stiffened up. Patient unable to give a history Review of systems unobtainable PAST MEDICAL HISTORYhypertension, coronary artery disease, dementia, CVA, CHF, panic disorder PAST SURGICAL HISTORY: Tubal Ligation, cholecystectomy, esophageal repair SOCIAL HISTORY: No alcohol, no drugs, tobacco FAMILY HISTORY: Hypertension Medications and Allergies Allergies Allergy/AdvReac Type Severity Reaction Status Date / Time acetaminophen [From Vicodin] Allergy Itching Verified 04/24/13 14:51 cyclobenzaprine Allergy Itching Verified 05/25/17 11:41 [From Flexeril] gabapentin Allergy Itching Verified 05/25/17 11:41 hydrocodone bitartrate Allergy Itching Verified 04/24/13 14:51 [From Vicodin] Opioids - Morphine Analogues Allergy Itching Verified 05/25/17 11:41 oxycodone Allergy Itching Verified 05/25/17 11:41 tramadol Allergy Itching Verified 05/25/17 11:41 perocet Allergy Itching Uncoded 05/25/17 11:41 Home Medications Medication Instructions Recorded Confirmed Last Taken Type AtorvaSTATin [Lipitor] 40 mg PO QHS 09/01/17 04/15/18 Unknown History DULoxetine [Cymbalta] 90 mg PO QDAY 09/01/17 04/15/18 Unknown History Ferrous Sulfate [Iron] 325 mg PO QDAY 09/01/17 04/15/18 Unknown History Pantoprazole [Protonix] 40 mg PO BID 09/01/17 04/15/18 Unknown History Potassium Chloride [K-Dur] 40 meq PO QDAY 09/01/17 04/15/18 Unknown History Valsartan [Diovan] 320 mg PO QDAY 09/01/17 04/15/18 Unknown History hydrALAZINE [Apresoline] 50 mg PO TID 09/01/17 04/15/18 Unknown History hydrOXYzine HCl [Hydroxyzine HCl] 50 mg PO TID 09/01/17 04/15/18 Unknown History tiZANidine [Zanaflex] 4 mg PO TID 09/01/17 04/15/18 Unknown History hydrOXYzine PAMOATE [Vistaril] 50 mg PO Q6HR PRN #10 capsule 02/02/18 04/15/18 Unknown Rx Exam - Physical Exam Narrative exam: Gen. appearance: Patient lying in bed, no apparent distress HEENT: Normocephalic, atraumatic, pupils equally round and reactive to light, unable to do extraocular movement, and no sclericterus,. No JVD or thyromegaly or nodule,neck supple, no carotid bruit ,mucous membranes moist, no exudate or erythema Heart: S1, S2, regular rate and rhythm Lungs: Clear bilaterally, breathing comfortable Abdomen: Positive bowel sounds, soft, nondistended, no organomegaly Extremity:no edema cyanosis, clubbing Skin: no rash, dry, warm Neuro: Difficult to assess - Constitutional Vitals: Temp Pulse Resp BP Pulse Ox 98.5 F 110 H 25 H 187/114 98 04/14/18 22:07 04/14/18 23:39 04/14/18 23:39 04/14/18 23:39 04/14/18 23:39 Results - Labs CBC & Chem 7: 04/14/18 Unknown 04/14/18 Unknown Labs: Abnormal lab results 04/14/18 04/14/18 04/14/18 Range/Units 22:13 Unknown Unknown Lymph % (Auto) 41.5 H (13.4-35.0) % Scott % (Auto) 8.6 H (0.0-7.3) % Eos % (Auto) 6.0 H (0.0-4.3) % Eos # 0.5 H (0.0-0.4) K/mm3 APTT 23.3 L (24.2-36.6) Sec. Potassium (3.6-5.0) mmol/L Glucose (65-100) mg/dL POC Glucose 117 H (70-105) Total Creatine Kinase (30-135) units/L 04/14/18 Range/Units Unknown Lymph % (Auto) (13.4-35.0) % Scott % (Auto) (0.0-7.3) % Eos % (Auto) (0.0-4.3) % Eos # (0.0-0.4) K/mm3 APTT (24.2-36.6) Sec. Potassium 3.4 L (3.6-5.0) mmol/L Glucose 111 H (65-100) mg/dL POC Glucose (70-105) Total Creatine Kinase 162 H (30-135) units/L - Imaging and Cardiology CT Scan - head: report reviewed Assessment and Plan Assessment Aphasic, rule out CVA versus psych hypertension coronary artery disease dementia CVA CHF, stable panic disorder Plan Admit to medicine Abdomen MRI of the head, carotid Doppler, echo Start aspirin, statin IVH Vandana in for blood pressure control Do neurochecks, consult neurology, physical and operation ultimately Continue Procrit outpatient medications DVT prophylaxis
[2018-04-15 00:42] LABS: Bacteria,Urine 2+ /HPF (Negative); Bilirubin,Urine NEG (Negative); Blood,Urine NEG (Negative); Color,Urine Yellow (Yellow); Mucus,Urine 2+ /HPF; Urobilinogen,Urine < 2.0 mg/dL (<2.0)
[2018-04-15 00:47] LABS: Amphetamine Screen,Urine PRESUMPTIVE NEGATIVE; Benzodiazepines Screen,Urine PRESUMPTIVE NEGATIVE; Cannabinoid Screen,Urine PRESUMPTIVE NEGATIVE; Cocaine Screen,Urine PRESUMPTIVE NEGATIVE; Methadone Screen,Urine PRESUMPTIVE NEGATIVE; Opiate Screen,Urine PRESUMPTIVE NEGATIVE
[2018-04-15] MEDS ORDERED: DULCOLAX PR PRN (02:51)
[2018-04-15] MEDS ORDERED: ZOFRAN IV PRN (02:51)
[2018-04-15] MEDS ORDERED: APRESOLINE IV PRN ×2 (02:51→14:36)
[2018-04-15] MEDS ORDERED: SODIUM CHLORIDE FLUSH SYRINGE 10 ML IV PRN (02:51)
[2018-04-15] MEDS ORDERED: MILK OF MAGNESIA PO PRN (02:51)
[2018-04-15] MEDS ORDERED: VISTARIL PO PRN (09:49)
--- NOTE | 2018-04-15 10:06 | Magnetic Resonance Report ---
MRI OF THE BRAIN WITHOUT CONTRAST: HISTORY: Stroke PROCEDURE: Multiplanar, multisequence MR imaging of the brain without IV contrast was performed. FINDINGS: Compared to the MR brain dated 05/26/[address] head dated 04/14/18. The brain parenchyma signal intensity and its cutler white interface are within normal limits on all sequences. No evidence for acute ischemia, hemorrhage or mass. No chronic infarct or extra-axial fluid collection. The midline structures are central. The basal cisterns are patent. Normal ventricular size. The orbital cavities and sella turcica demonstrate no abnormality. The visualized paranasal sinuses and mastoid air cells are well aerated. IMPRESSION: Unremarkable non-enhanced MRI of the brain.
[2018-04-15] MEDS: CYMBALTA PO SCH (12:55)
[2018-04-15] MEDS: DIOVAN PO SCH ×2 (12:55→13:14)
[2018-04-15] MEDS: ASPIRIN PO SCH (12:55)
[2018-04-15] MEDS: PROTONIX PO SCH ×2 (12:56→21:31)
[2018-04-15] MEDS: LOVENOX SUB-Q SCH (12:56)
[2018-04-15] MEDS: APRESOLINE PO SCH ×2 (13:00→21:31)
[2018-04-15] MEDS: ZANAFLEX PO SCH ×2 (13:02→13:15)
[2018-04-15] MEDS ORDERED: BENADRYL IV PRN (13:27)
[2018-04-15] MEDS ORDERED: BENADRYL PO PRN ×2 (13:52→14:18)
[2018-04-15] MEDS: PERCOCET 5/325 PO PRN ×2 (14:39→23:04)
--- NOTE | 2018-04-15 14:46 | Progress Note ---
Assessment and Plan Assessment and plan: 53-year-old -Green[place]ic female with past medical history significant for CVA, CAD, ? 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 Patient has been followed by [facility] and I have called the [facility] and discussed the case with him. Patient had multiple similar episodes, and seen many neurologists including in [place]. Patient was referred to [place] and she said she will go there once alcantara finish the paper work. Patient has generalized upper trunk shaking Aphasia - CVA workup was done and negative - Neurology consulted, patient is on aspirin and statin Hypertensive urgency - Patient that if his Diovan, added amlodipine and increase IV hydralazine PRN Generalized shaking - Continue home medications - Patient had extensive workup previously, keep to follow with neurologist DVT prophylaxis - on lovenox Disposition - Possible discharge tomorrow History Interval history: Patient was seen and evaluated this morning, patient has upper body shaking, patient is aphasic and indicated through a writing. Hospitalist Physical - Physical exam Narrative exam: generalized shaking of the upper extremities. The patient is obese. Vital signs as documented. Head exam is unremarkable. No scleral icterus . Neck is without jugular venous distension, thyromegaly, or carotid bruits. Lungs are clear to auscultation. Cardiac exam reveals regular rate and Rhythm. First and second heart sounds normal. No murmurs, rubs or gallops. Abdominal exam reveals normal bowel sounds, no masses, no organomegaly and no aortic enlargement. Extremities are nonedematous and both femoral and pedal pulses are normal. FASHION CONSULTANT: Alert and aphasic but she communicated well through writing. - Constitutional Vitals: Temp Pulse Resp BP Pulse Ox 98.2 F 110 H 18 182/88 93 04/15/18 12:59 04/15/18 13:00 04/15/18 12:59 04/15/18 13:00 04/15/18 12:59 Results - Labs CBC & Chem 7: 04/14/18 Unknown 04/14/18 Unknown Labs: Laboratory Last Values WBC 8.3 K/mm3 (4.5-11.0) 04/14/18 Unknown RBC 4.29 M/mm3 (3.65-5.03) 04/14/18 Unknown Hgb 13.6 gm/dl (10.1-14.3) 04/14/18 Unknown Hct 39.6 % (30.3-42.9) 04/14/18 Unknown MCV 92 fl (79-97) 04/14/18 Unknown MCH 32 pg (28-32) 04/14/18 Unknown MCHC 34 % (30-34) 04/14/18 Unknown RDW 14.0 % (13.2-15.2) 04/14/18 Unknown Plt Count 302 K/mm3 (140-440) 04/14/18 Unknown Lymph % (Auto) 41.5 % (13.4-35.0) H 04/14/18 Unknown Dickens % (Auto) 8.6 % (0.0-7.3) H 04/14/18 Unknown Eos % (Auto) 6.0 % (0.0-4.3) H 04/14/18 Unknown Baso % (Auto) 0.8 % (0.0-1.8) 04/14/18 Unknown Lymph # 3.5 K/mm3 (1.2-5.4) 04/14/18 Unknown Dickens # 0.7 K/mm3 (0.0-0.8) 04/14/18 Unknown Eos # 0.5 K/mm3 (0.0-0.4) H 04/14/18 Unknown Baso # 0.1 K/mm3 (0.0-0.1) 04/14/18 Unknown Seg Neutrophils % 43.1 % (40.0-70.0) 04/14/18 Unknown Seg Neutrophils # 3.6 K/mm3 (1.8-7.7) 04/14/18 Unknown PT 13.1 Sec. (12.2-14.9) 04/14/18 Unknown INR 0.94 (0.87-1.13) 04/14/18 Unknown APTT 23.3 Sec. (24.2-36.6) L 04/14/18 Unknown Thrombin Time 15.1 Sec. (15.1-19.6) 04/14/18 Unknown Sodium 141 mmol/L (137-145) 04/14/18 Unknown Potassium 3.4 mmol/L (3.6-5.0) L 04/14/18 Unknown Chloride 100.5 mmol/L (98-107) 04/14/18 Unknown Carbon Dioxide 26 mmol/L (22-30) 04/14/18 Unknown Anion Gap 18 mmol/L 04/14/18 Unknown BUN 13 mg/dL (7-17) 04/14/18 Unknown Creatinine 0.8 mg/dL (0.7-1.2) 04/14/18 Unknown Estimated GFR > 60 ml/min 04/14/18 Unknown BUN/Creatinine Ratio 16 % 04/14/18 Unknown Glucose 111 mg/dL (65-100) H 04/14/18 Unknown POC Glucose 117 (70-105) H 04/14/18 22:13 Calcium 9.7 mg/dL (8.4-10.2) 04/14/18 Unknown Total Creatine Kinase 162 units/L (30-135) H 04/14/18 Unknown CK-MB (CK-2) 1.6 ng/mL (0.0-4.0) 04/14/18 Unknown CK-MB (CK-2) Rel Index 0.9 (0-4) 04/14/18 Unknown Troponin T < 0.010 ng/mL (0.00-0.029) 04/14/18 Unknown Urine Color Yellow (Yellow) 04/14/18 Unknown Urine Turbidity Cloudy (Clear) 04/14/18 Unknown Urine pH 5.0 (5.0-7.0) 04/14/18 Unknown Ur Specific [place] 1.026 (1.003-1.030) 04/14/18 Unknown Urine Protein 100 mg/dl mg/dL (Negative) 04/14/18 Unknown Urine Glucose (UA) Neg mg/dL (Negative) 04/14/18 Unknown Urine Ketones Neg mg/dL (Negative) 04/14/18 Unknown Urine Blood Neg (Negative) 04/14/18 Unknown Urine Nitrite Neg (Negative) 04/14/18 Unknown Urine Bilirubin Neg (Negative) 04/14/18 Unknown Urine Urobilinogen < 2.0 mg/dL (<2.0) 04/14/18 Unknown Ur Leukocyte Esterase Neg (Negative) 04/14/18 Unknown Urine WBC (Auto) 7.0 /HPF (0.0-6.0) H 04/14/18 Unknown Urine RBC (Auto) 4.0 /HPF (0.0-6.0) 04/14/18 Unknown U Epithel Cells (Auto) 20.0 /HPF (0-13.0) H 04/14/18 Unknown Urine Bacteria (Auto) 2+ /HPF (Negative) 04/14/18 Unknown Urine Mucus 2+ /HPF 04/14/18 Unknown Urine Opiates Screen Presumptive negative 04/14/18 Unknown Urine Methadone Screen Presumptive negative 04/14/18 Unknown Ur Barbiturates Screen Presumptive negative 04/14/18 Unknown Ur Phencyclidine Scrn Presumptive negative 04/14/18 Unknown Ur Amphetamines Screen Presumptive negative 04/14/18 Unknown U Benzodiazepines Scrn Presumptive negative 04/14/18 Unknown Urine Cocaine Screen Presumptive negative 04/14/18 Unknown U Marijuana (THC) Screen Presumptive negative 04/14/18 Unknown Drugs of Abuse Note Disclamer 04/14/18 Unknown
[2018-04-15] MEDS: NORVASC PO SCH (14:51)
--- NOTE | 2018-04-15 14:58 | Vascular Lab Report ---
CAROTID DUPLEX STUDY: RIGHT PSVEDV CCA PROX:[id number] CCA DIST:[id number] ICA PROX:62251 ICA MID:07490 ICA DIST:52205 ECA: 181 VERT: 54 23 LEFT PSVEDV CCA PROX:74811 CCA DIST:29003 ICA PROX:46211 ICA MID:89791 ICA DIST:8252 ECA: 150 VERT: 56 23 REASON FOR EXAM: Stroke. COMMENTS ON THE RIGHT: Doppler frequency analysis is consistent with 50 to 79 percent diameter reduction of the internal carotid artery. There are interval changes but not enough of plaque to explain the velocity elevations. The common carotid artery is patent. The external carotid artery is patent. The vertebral artery has antegrade flow. COMMENTS ON THE LEFT: Doppler frequency analysis is consistent with 16 to 49 percent diameter reduction of the internal carotid artery. A small amount of plaque is seen. As on the right, there is not enough plaque to account for the velocity elevations. The common carotid artery is patent. The external carotid artery is patent. The vertebral artery has antegrade flow. IMPRESSION: 50-79% diameter reduction in the internal carotid arteries bilaterally. This is based on velocity criteria. There does not seem to be enough plaque in either internal carotid artery to explain the velocity elevations. Consider further evaluation with CT angiography if clinically appropriate.
[2018-04-16 07:24] LABS: Chol/HDL Ratio 3.1 %
[2018-04-16] MEDS: DIOVAN PO SCH (10:13)
[2018-04-16] MEDS: PROTONIX PO SCH (10:13)
[2018-04-16] MEDS: ASPIRIN PO SCH (10:13)
[2018-04-16] MEDS: NORVASC PO SCH (10:14)
[2018-04-16] MEDS: LOVENOX SUB-Q SCH (10:14)
[2018-04-16] MEDS: APRESOLINE PO SCH (10:14)
[2018-04-16] MEDS: CYMBALTA PO SCH (10:25)
--- NOTE | 2018-04-16 12:19 | Discharge Summary ---
Providers - Providers Date of Admission: 04/14/18 23:59 Attending physician: SONIA HARDY MD 04/15/18 01:32 Speech Therapy Evaluation and Treat [CONS] Urgent Reason For Exam: swallowing difficulty 04/15/18 02:51 Occupational Therapy Evaluate and Treat [CONS] Routine Comment: Reason For Exam: Neuro deficits Physical Therapy Evaluation and Treat [CONS] Routine Comment: Reason For Exam: Neuro deficits 04/15/18 02:54 Consult to Physician [CONS] Routine Comment: Consulting Provider: YOON AL Physician Instructions: Reason For Exam: stroke like sxs Primary care physician: PHARMACY ASSOCIATE Hospitalization Reason for admission: aphasia, Stiffman syndrome Condition: Stable Pertinent studies: MRI normal ECHO normal Hospital course: 53-year-old woman history of hypertension, coronary artery disease, dementia, CVA, CHF, panic disorder, 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 The ornamental plasterer helper at bedside state that her body stiffened up. patient was admitted and CVA work up was done and negative for acute CVA, She is a [facility] patient and called the doctor at [facility] and he told me she had recurrent episodes lie that before and has been seen by many neurologists including neurologists at [place] and no definite diagnosis was made and the plan is to transfer the patient to [facility]. The patient told me that [facility] is working for the transfer. Patient was seen by inhouse neurologist and there is nothing different we can do. Per the [facility] Dr D/C the patient and will be followed by [facility]. patient was alert and oriented and communicating very well through writing. Patient advised to continue home medications and has follow up at [facility] PCP and neurology. Disposition: - TO HOME OR SELFCARE Time spent for discharge: 32 minutes - Discharge Diagnoses (1) Dizziness Status: Acute (2) HLD (hyperlipidemia) Status: Chronic Qualifiers: Hyperlipidemia type: mixed hyperlipidemia Qualified Code(s): E78.2 - Mixed hyperlipidemia (3) HTN (hypertension) Status: Chronic Qualifiers: Hypertension type: essential hypertension Qualified Code(s): I10 - Essential (primary) hypertension Core Measure Documentation - Palliative Care Palliative Care/ Comfort Measures: Not Applicable - Core Measures Any of the following diagnoses?: none Exam - Physical Exam Narrative exam: generalized shaking of the trunk. The patient is obese. Vital signs as documented. Head exam is unremarkable. No scleral icterus . Neck is without jugular venous distension, thyromegaly, or carotid bruits. Lungs are clear to auscultation. Cardiac exam reveals regular rate and Rhythm. First and second heart sounds normal. No murmurs, rubs or gallops. Abdominal exam reveals normal bowel sounds, no masses, no organomegaly and no aortic enlargement. Extremities are nonedematous and both femoral and pedal pulses are normal. PERSONNEL RECRUITER: Alert and aphasic but she communicated well through writing. - Constitutional Vitals: Temp Pulse Resp BP Pulse Ox 98.0 F 85 18 110/70 97 04/16/18 08:51 04/16/18 08:51 04/16/18 08:51 04/16/18 08:51 04/16/18 08:51 Plan Activity: no restrictions Weight Bearing Status: Full Weight Bearing Diet: low salt Additional Instructions: Follow with the [facility] PCP and neurology. Patient was seen by many neurologists at [place] and there is a plan to transfer the patient to [facility]. Follow up with: PRIMARY MD CAITLYN [Primary Care Provider] - 3-5 Days
[2018-04-16 12:47] VITALS: BP 119/78
--- NOTE | 2018-04-17 00:53 | Consultation ---
REASON FOR CONSULTATION: Possible stroke. HISTORY OF PRESENT ILLNESS: Given by the fimichael. This patient is a 53-year-old, looks younger than her stated age. Apparently, she has problem already before with the stiffness, jerking, and she was given a diagnosis of stiff man syndrome. This is a very rare condition. With all these problems with stiffness, she has been hospitalized all the time. She always takes meds and she just recovers by herself. She was doing well until about yesterday about 7:00 p.m. when she had an onset of inability to talk and they described some kind of altered mental status. She is just sort of kind of drowsy. She started about 9 o'clock yesterday and she was brought to the Emergency Room right away. The patient had Neurology telemetry and she was not a candidate for thrombectomy or TPA. It was felt that this could be part of her stiff man syndrome. The patient has gotten better since yesterday. The nurse reported that yesterday she could not even move her arms and legs, but now she is starting to move her arm. The patient could communicate by writing on the notebook and she said that she is better now than she was before like yesterday. This is always the course of her symptoms. She will be stiff. She was not able to talk and then after a short while she will get better. The patient denied any other symptoms. She could communicate by means of writing. PAST MEDICAL HISTORY: Diagnosis of stiff man syndrome. Apparently, she has been managed and evaluated and treated. She had a stroke before with paralysis of the left side arm and leg with no residual. She has possible hypertension. PAST SURGICAL HISTORY: Gallbladder surgery. She had also an exploratory laparotomy to the left side of her body and apparently she has an esophageal problem. The patient does not smoke or drink alcoholic beverages. No drugs. OTHER MEDICAL CONDITIONS: Possible heart attack, AMI, congestive heart failure, arthritis, psychiatric treatment, was diagnosed with dementia also. 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 HOME MEDICATIONS: Include atorvastatin, duloxetine, ferrous sulfate, pantoprazole, potassium chloride, valsartan, hydralazine, hydroxyzine, ____ Zanaflex. PHYSICAL EXAMINATION: GENERAL: Revealed a well-developed, well-nourished black female who looks younger than stated age of 53. VITAL SIGNS: Temperature 98.5, heart rate 110. Blood pressure elevated to 165/101, improving slowly. Saturation 98%. HEENT: Unremarkable. She has constant movement of her head, but varying in intensity. No intracranial or intraorbital bruits. NECK: Short. Supple. No carotid bruit. HEART: Regular in rhythm. Somewhat tachycardic. LUNGS: Decreased breath sounds. ABDOMEN: Voluntary muscular guarding. EXTREMITIES: Stiff, but externally normal. NEUROLOGIC: The patient with a ____. However, she could communicate by writing on a notebook and they were appropriate. Cranial nerve examination limited, but unremarkable. Has slight difficulty in moving her face like when I asked her to show me her teeth. Motor examination, she is strong in the upper extremities now moving better compared to last night. She had a good purse seiner. The lower extremity, however, last night, this was stiff. Reflexes: No Babinski. Coordination difficult on the lower extremities. The patient was not ambulated. CLINICAL IMPRESSION: This patient appeared to have symptoms, which is most likely related to her symptoms of stiff man syndrome. There could be superimposed anxiety disorder. She also has hypertension. I do not see any evidence of a stroke; however, she had one stroke before, which affected her left side, but no residual. RECOMMENDATIONS: Closely observe since she is already getting better. I would like to stop the Zanaflex, since according to him, she does not like this. We will just consider Valium if she does not continue to get better. ____ agree there is no definitive treatment for stiff man syndrome. 60 minutes involved in the history and physical examination and more than 50% in the coordination of care and counseling. JOB# [id number] MIRYAM/BRYON
== END 2018-04-16 16:00 | disposition home or self-care (01) | DRG 92 ==
LOC: ED 22:01 → 4A 23:59
PROVIDERS: ADMIT Internal Medicine; ATTEND Internal Medicine
DX: G25.82 Stiff-man syndrome (principal); R47.01 Aphasia; I25.2 Old myocardial infarction; I50.9 Heart failure, unspecified; I11.0 Hypertensive heart disease with heart failure; R42 Dizziness and giddiness; M19.90 Unspecified osteoarthritis, unspecified site; I25.10 Atherosclerotic heart disease of native coronary artery without angina pectoris; F03.90 Unspecified dementia, unspecified severity, without behavioral disturbance, psychotic disturbance, mood disturbance, and anxiety; F41.0 Panic disorder [episodic paroxysmal anxiety]; I16.0 Hypertensive urgency; E78.2 Mixed hyperlipidemia; Z79.899 Other long term (current) drug therapy; Z88.6 Allergy status to analgesic agent; Z86.73 Personal history of transient ischemic attack (TIA), and cerebral infarction without residual deficits; Z88.5 Allergy status to narcotic agent; Z90.49 Acquired absence of other specified parts of digestive tract; Z98.51 Tubal ligation status; Z88.8 Allergy status to other drugs, medicaments and biological substances
CPT/HCPCS: 36415; 70450; 70551; 80048; 80061; 80307; 81001; 82550; 82553; 82962; 84484; 85025; 85610; 85670; 85730; 93005; 93010; 93306; 93880; 94760; A9270-GY; J0360; J1200; J1650; J2405; Q0177

== ENCOUNTER 2019-01-02 13:34 | Outpatient (CLI) | payer MEDICARE ==
--- NOTE | 2019-01-05 09:48 | Mammography Report ---
BILATERAL DIGITAL SCREENING MAMMOGRAMS WITH CAD INDICATION: Screening. COMPARISONS: None available. However, she indicated that she had had a prior mammogram at [place]. FINDINGS: Craniocaudal and mediolateral oblique views of both breasts were obtained using 2-D digital acquisition.In addition to standard review, the examination was analyzed for possible abnormalities using a computer-assisted detection device (iCAD). The breast tissue is heterogeneously dense, which may obscure small masses. Bilateral asymmetries require comparison with the prior mammogram or additional imaging. IMPRESSION: Comparison with the previous mammogram is required. We will attempt to obtain a prior mammogram for c omparison. If we did not obtain a prior mammogram within 30 days, a revised report will be issued rec ommending a recall for additional imaging. Please be advised that the patient should not schedule an appointment for return until adequate time (at least 2 weeks) has passed breast to obtain the prior m ammogram. BI-RADS CATEGORY 0: INCOMPLETE - NEED ADDITIONAL IMAGING EVALUATION AND/OR PRIOR MAMMOGRAMS FOR COMP ARISON Information is entered into a reminder system for a target due date for the next mammogram. The resul ts and recommendations were sent to the patient by mail. Signer Name: Christopher Blackman MD Signed: 01/05/2019 9:43 AM Workstation Name: [id number]
== END 2019-01-02 13:35 | disposition home or self-care (01) ==
LOC: SPVWC 13:34
PROVIDERS: ATTEND Family Medicine
DX: Z12.31 Encounter for screening mammogram for malignant neoplasm of breast (principal); E78.5 Hyperlipidemia, unspecified; I11.0 Hypertensive heart disease with heart failure; I50.9 Heart failure, unspecified; E78.00 Pure hypercholesterolemia, unspecified; Z90.710 Acquired absence of both cervix and uterus
CPT/HCPCS: 77067

== ENCOUNTER 2019-07-02 14:30 | Emergency (ER) | payer SELFPAY ==
[2019-07-02 14:51] VITALS: BP 179/101
--- NOTE | 2019-07-02 15:23 | Event Note ---
ED Screening Note ED Screening Note: NAUSEA AND HEART FLUTTERING PMH CHF CKD FUNCTIONAL MOVEMENT DISORDER CVA HTN STIFF MAN SYNDROME ANXIETY OBESE LMP MENOPAUSE PSH ESOPHAGEAL TEAR CHOLEY This initial assessment/diagnostic orders/clinical plan/treatment(s) is/are subject to change based on patients health status, clinical progression and re- assessment by fellow clinical providers in the ED. Further treatment and workup at subsequent clinical providers discretion. Patient/guardian urged not to elope from the ED as their condition may be serious if not clinically assessed and managed. Initial orders include: EKG LABS URINE
--- NOTE | 2019-07-02 16:31 | XRay Report ---
CHEST 2 VIEWS INDICATION / CLINICAL INFORMATION: PALPITATIONS. COMPARISON: One view of the chest from 01/12/2018. FINDINGS: SUPPORT DEVICES: None. HEART / MEDIASTINUM: No significant abnormality. LUNGS / PLEURA: No significant pulmonary or pleural abnormality. No pneumothorax. ADDITIONAL FINDINGS: No significant additional findings. IMPRESSION: 1. No acute abnormality of the chest. Signer Name: Pieter Trinh MD Signed: 07/02/2019 4:26 PM Workstation Name: [id number]
[2019-07-02 16:47] LABS: Basophils # (Auto) 0.1 K/mm3 (0.0-0.1); Basophils % (Auto) 1.1 % (0.0-1.8); Eosinophils # (Auto) 0.2 K/mm3 (0.0-0.4); Eosinophils % (Auto) 2.8 % (0.0-4.3); Hemoglobin 14.4 gm/dl (10.1-14.3); Lymphocytes # (Auto) 2.7 K/mm3 (1.2-5.4); Lymphocytes % (Auto) 38.6 % (13.4-35.0); Mean Corpuscular HGB Conc 35 % (30-34); Mean Corpuscular Volume 87 fl (79-97); Monocytes # (Auto) 0.5 K/mm3 (0.0-0.8); Monocytes % (Auto) 7.1 % (0.0-7.3); Platelet Count 340 K/mm3 (140-440); Red Blood Count 4.72 M/mm3 (3.65-5.03); Red Cell Distribution Width 14.6 % (13.2-15.2)
[2019-07-02 17:13] LABS: Alanine Aminotransferase 23 units/L (7-56); Albumin 4.8 g/dL (3.9-5); BUN/Creatinine Ratio 13; Blood Urea Nitrogen 10 mg/dL (7-17); Calcium 10.2 mg/dL (8.4-10.2); Hemolysis Index 12
[2019-07-02 17:54] LABS: Bilirubin,Urine NEG (Negative); Blood,Urine SM (Negative); Color,Urine Yellow (Yellow); Mucus,Urine FEW /HPF; Protein,Urine <15 mg/dL mg/dL (Negative); Urobilinogen,Urine < 2.0 mg/dL (<2.0)
--- NOTE | 2019-07-02 18:34 | Emergency Department Report ---
ED N/V/D HPI - General Chief complaint: Nausea/Vomiting/Diarrhea Stated complaint: HEART BEATING FAST Time Seen by Provider: 07/02/19 15:21 Source: patient Mode of arrival: Ambulatory Limitations: No Limitations - History of Present Illness Initial comments: Patient is a 54-year-old female that presents emergency room with complaints of nausea vomiting diarrhea. Patient states her nausea and vomiting started yesterday. Patient states her diarrhea started today. Patient states her symptoms are improving. Patient denies blood in her vomitus or in her stool. Patient denies abdominal pain. Patient denies fever chills. Patient states she's had occasional palpitations. Patient states heavy ER because she was having palpitations. Patient denies chest pain shortness of breath. Patient denies headache and blurred vision. MD complaint: nausea, vomiting, diarrhea -: Sudden, days(s) Description of Vomiting: watery Description of Diarrhea: water Associated Abdominal Pain: No Severity: moderate Consistency: intermittent Improves with: eating, rest Worsens with: none Associated Symptoms: nausea/vomiting, other (palpitations). denies: myalgias, chest pain, cough, diaphoresis, fever/chills, headaches, loss of appetite, malaise, rash, dysuria, shortness of breath, syncope, weakness - Related Data Home Medications Medication Instructions Recorded Confirmed Last Taken AtorvaSTATin [Lipitor] 40 mg PO QHS 09/01/17 04/15/18 Unknown DULoxetine [Cymbalta] 90 mg PO QDAY 09/01/17 04/15/18 Unknown Ferrous Sulfate [Iron 325 MG] 325 mg PO QDAY 09/01/17 04/15/18 Unknown Pantoprazole [Protonix TAB] 40 mg PO BID 09/01/17 04/15/18 Unknown Potassium Chloride [K-Dur] 40 meq PO QDAY 09/01/17 04/15/18 Unknown Valsartan [Diovan] 320 mg PO QDAY 09/01/17 04/15/18 Unknown hydrALAZINE [Apresoline TAB] 50 mg PO TID 09/01/17 04/15/18 Unknown hydrOXYzine HCL 50 mg PO TID 09/01/17 04/15/18 Unknown tiZANidine [Zanaflex 4mg TAB] 4 mg PO TID 09/01/17 04/15/18 Unknown Previous Rx's Medication Instructions Recorded Last Taken Type hydrOXYzine PAMOATE [Vistaril] 50 mg PO Q6HR PRN #10 capsule 02/02/18 Unknown Rx Ondansetron [Zofran Odt] 4 mg PO Q6HR PRN #15 tab.rapdis 07/02/19 Unknown Rx Allergies Allergy/AdvReac Type Severity Reaction Status Date / Time acetaminophen [From Vicodin] Allergy Itching Verified 04/24/13 14:51 cyclobenzaprine Allergy Itching Verified 05/25/17 11:41 [From Flexeril] gabapentin Allergy Itching Verified 05/25/17 11:41 hydrocodone bitartrate Allergy Itching Verified 04/24/13 14:51 [From Vicodin] Opioids - Morphine Analogues Allergy Itching Verified 05/25/17 11:41 oxycodone Allergy Itching Verified 05/25/17 11:41 tramadol Allergy Itching Verified 05/25/17 11:41 perocet Allergy Itching Uncoded 05/25/17 11:41 ED Review of Systems ROS: Stated complaint: HEART BEATING FAST Other details as noted in HPI Constitutional: denies: chills, fever Eyes: denies: eye pain, eye discharge, vision change ENT: denies: ear pain, throat pain Respiratory: denies: cough, shortness of breath, wheezing Cardiovascular: palpitations. denies: chest pain Endocrine: no symptoms reported Gastrointestinal: nausea, vomiting, diarrhea. denies: abdominal pain Genitourinary: denies: urgency, dysuria, discharge Musculoskeletal: denies: back pain, joint swelling, arthralgia Skin: denies: rash, lesions Neurological: denies: headache, weakness, paresthesias Psychiatric: denies: anxiety, depression Hematological/Lymphatic: denies: easy bleeding, easy bruising ED Past Medical Hx - Past Medical History Previous Medical History?: Yes Hx Hypertension: Yes Hx CVA: Yes (tia, CVA 2006 no residual deficits) Hx Heart Attack/AMI: Yes Hx Congestive Heart Failure: Yes Hx Diabetes: No Hx Arthritis: Yes Hx Psychiatric Treatment: Yes (panic disorder) Hx Asthma: No Hx COPD: No Hx Dementia: Yes Additional medical history: tia 2011, uterus leiomyoma, arthritis of knee, hydrosalpinx, low back pain, h/o HPV infection movement disorder - Surgical History Past Surgical History?: Yes Additional Surgical History: tubal ligation - Family History Family history: no significant - Social History Smoking Status: Never Smoker Substance Use Type: None - Medications Home Medications: Home Medications Medication Instructions Recorded Confirmed Last Taken Type AtorvaSTATin [Lipitor] 40 mg PO QHS 09/01/17 04/15/18 Unknown History DULoxetine [Cymbalta] 90 mg PO QDAY 09/01/17 04/15/18 Unknown History Ferrous Sulfate [Iron 325 MG] 325 mg PO QDAY 09/01/17 04/15/18 Unknown History Pantoprazole [Protonix TAB] 40 mg PO BID 09/01/17 04/15/18 Unknown History Potassium Chloride [K-Dur] 40 meq PO QDAY 09/01/17 04/15/18 Unknown History Valsartan [Diovan] 320 mg PO QDAY 09/01/17 04/15/18 Unknown History hydrALAZINE [Apresoline TAB] 50 mg PO TID 09/01/17 04/15/18 Unknown History hydrOXYzine HCL 50 mg PO TID 09/01/17 04/15/18 Unknown History tiZANidine [Zanaflex 4mg TAB] 4 mg PO TID 09/01/17 04/15/18 Unknown History hydrOXYzine PAMOATE [Vistaril] 50 mg PO Q6HR PRN #10 capsule 02/02/18 04/15/18 Unknown Rx Ondansetron [Zofran Odt] 4 mg PO Q6HR PRN #15 tab.rapdis 07/02/19 Unknown Rx ED Physical Exam - General Limitations: No Limitations General appearance: alert, in no apparent distress - Head Head exam: Present: atraumatic, normocephalic - Eye Eye exam: Present: normal appearance - ENT ENT exam: Present: mucous membranes moist - Neck Neck exam: Present: normal inspection - Respiratory Respiratory exam: Present: normal lung sounds bilaterally. Absent: respiratory distress, wheezes, rales - Cardiovascular Cardiovascular Exam: Present: regular rate, normal rhythm. Absent: systolic murmur, diastolic murmur, rubs, gallop - GI/Abdominal GI/Abdominal exam: Present: soft, normal bowel sounds. Absent: distended, tenderness, guarding - Rectal Rectal exam: Present: deferred - Extremities Exam Extremities exam: Present: normal inspection - Back Exam Back exam: Present: normal inspection - Neurological Exam Neurological exam: Present: alert, oriented X3 - Psychiatric Psychiatric exam: Present: normal affect, normal mood - Skin Skin exam: Present: warm, dry, intact, normal color. Absent: rash ED Course Vital Signs 07/02/19 07/02/19 14:48 15:22 Temperature 98.3 F 98.3 F Pulse Rate 91 H 81 Respiratory 18 16 Rate Blood Pressure 179/101 179/101 O2 Sat by Pulse 100 99 Oximetry - Reevaluation(s) Reevaluation #1: I discussed all results with patient. I discussed plan of care with patient. Patient agrees with plan of care. Patient is stable for discharge. Patient will be discharged home. Patient given discharge instructions. Patient voiced understanding of discharge instructions. 07/02/19 18:51 ED Medical Decision Making - Lab Data Result diagrams: 07/02/19 16:34 07/02/19 16:39 - EKG Data -: EKG Interpreted by Me EKG shows normal: sinus rhythm, axis, intervals, QRS complexes, ST-T waves Rate: normal - Radiology Data Radiology results: report reviewed, image reviewed CHEST 2 VIEWS INDICATION / CLINICAL INFORMATION: PALPITATIONS. COMPARISON: One view of the chest from 01/12/2018. FINDINGS: SUPPORT DEVICES: None. HEART / MEDIASTINUM: No significant abnormality. LUNGS / PLEURA: No significant pulmonary or pleural abnormality. No pneumothorax. ADDITIONAL FINDINGS: No significant additional findings. IMPRESSION: 1. No acute abnormality of the chest. - Medical Decision Making Patient is a 54-year-old female that presents emergency room with complaints of nausea vomiting and diarrhea. Patient's clinical findings are consistent with viral gastroenteritis. Patient discharged home with Zofran. Patient's labs unremarkable. Patient's chest x-ray was done due to the patient's complaint of palpitations. Patient's EKG and chest x-ray are unremarkable. Patient discharged home. Patient tolerated by mouth challenge prior to discharge. - Differential Diagnosis n/v/d. gastroenteritis, viral. palpitations. dehydration Critical care attestation.: If time is entered above; I have spent that time in minutes in the direct care of this critically ill patient, excluding procedure time. ED Disposition Clinical Impression: Palpitations, Gastroenteritis Nausea & vomiting Qualifiers: Vomiting type: unspecified Vomiting Intractability: non-intractable Qualified Code(s): R11.2 - Nausea with vomiting, unspecified Diarrhea Qualifiers: Diarrhea type: unspecified type Qualified Code(s): R19.7 - Diarrhea, unspecified Disposition: TO HOME OR SELFCARE Is pt being admited?: No Does the pt Need Aspirin: No Condition: Stable Instructions: Gastroenteritis (ED), Acute Nausea and Vomiting (ED), Acute Diarrhea (ED) Additional Instructions: Patient to follow-up with primary care in 2-3 days. . Patient to return to ER if condition worsens. Patient to rest. Patient to increase water. Patient to take meds as directed. Patient's take Tylenol or ibuprofen when necessary for pain. Patient to eat a Best diet Prescriptions: Ondansetron [Zofran Odt] 4 mg PO Q6HR PRN #15 tab.rapdis PRN Reason: Nausea And Vomiting Referrals: PRIMARY CARE, [Primary Care Provider] - 2-3 Days Time of Disposition: 18:35
== END 2019-07-02 19:02 | disposition home or self-care (01) ==
LOC: ED 14:30
DX: K52.9 Noninfective gastroenteritis and colitis, unspecified (principal); R00.2 Palpitations; I10 Essential (primary) hypertension; F03.90 Unspecified dementia, unspecified severity, without behavioral disturbance, psychotic disturbance, mood disturbance, and anxiety; Z86.73 Personal history of transient ischemic attack (TIA), and cerebral infarction without residual deficits; Z98.51 Tubal ligation status; Z79.899 Other long term (current) drug therapy; Z88.8 Allergy status to other drugs, medicaments and biological substances
CPT/HCPCS: 36415; 71046; 80053; 81001; 83880; 84484; 84703; 85025; 93005; 93010